=== PATIENT | male | born 1960 | race Caucasian/White ===

== ENCOUNTER 2017-01-04 11:15 | Emergency (ER) | payer SELFPAY ==
[2017-01-04] MEDS ORDERED: Ketorolac INJ* 60 MG/2 ML VIAL IM ONE (12:34)
[2017-01-04] MEDS ORDERED: Dexamethasone IV* 4 MG/ML 1 ML (4 MG) IM ONE (12:35)
[2017-01-04] MEDS ORDERED: Orphenadrine Citrate IV* 30 MG/ML 2 ML VIAL IM ONE (12:35)
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
--- NOTE | 2017-01-04 13:46 | RAD ---
INDICATION: Right hip pain COMPARISON: None TECHNIQUE: An AP view of the pelvis and AP views of the hip in neutral and abducted position were obtained FINDINGS: Bones: There are no acute bony findings. Joint spaces: The hips articulate normally. The joint spaces are preserved. SI joints/symphysis: The SI joints and symphysis are intact. Other: None IMPRESSION: NO ACUTE BONY FINDINGS.
--- NOTE | 2017-01-04 13:49 | RAD ---
Indication: Sciatica. 5 views of lumbar spine are reviewed. There is mild compression of the L3 vertebra of the superior endplate. The age of this is undetermined. This was not present on prior CT of April 02, 2016. There is approximately 25% compression. Degenerative disc disease at L2-L3 is noted. Osteopenia is noted. Pedicles appear intact. IMPRESSION: MILD COMPRESSION SUPERIOR ENDPLATE L3 OF APPROXIMATELY 25% AGE OF WHICH IS UNDETERMINED. THIS WAS NOT PRESENT ON PRIOR CT DATED 08-17.
[2017-01-04 14:19] VITALS: BP 126/74
== END 2017-01-04 14:18 | disposition home or self-care (01) ==
LOC: ED 11:15
DX: M54.16 Radiculopathy, lumbar region (principal); M25.50 Pain in unspecified joint; F17.210 Nicotine dependence, cigarettes, uncomplicated
CPT/HCPCS: 72110; 96374; 96375; 99282; J1100; J1885; J2360

== ENCOUNTER 2017-02-02 08:28 | Observation (INO) | payer MEDICAID, OTHER ==
[~2017-02-02 08:28] MED LIST: Bacitracin IV* 50,000 UNITS INJ ONE; Buffered Lidocaine 1% SYRIN* 3 ML/SYR SYRINGE INTRADERM ONE; Lidocain 1% EPI 1:100,000 * 30 ML MDV ONE; Thrombin 5,000 UNITS* 1 APPLIC KIT - topical use - TOPICAL ONE; ceFAZolin 2 GM PREMIX(*) 2 GM/50 ML BAG IVPB ONE
[2017-02-02] MEDS ORDERED: fentaNYL* 50 MCG/ML 2 ML VIAL (100 MCG VIAL) ONE ×2 (09:02→11:51)
[2017-02-02] MEDS ORDERED: Albuterol 2.5 MG/3 ML NEB.SOL* (0.083%) ONE (09:03)
[2017-02-02] MEDS ORDERED: Dexamethasone IV* 4 MG/ML 1 ML (4 MG) ONE (09:26)
[2017-02-02] MEDS ORDERED: Atracurium* 10 MG/ML 10 ML VIAL ONE (09:26)
[2017-02-02] MEDS ORDERED: Lidocaine 2% PF * 5 ML VIAL ONE (09:26)
[2017-02-02] MEDS ORDERED: fentaNYL* 50 MCG/ML 5 ML VIAL (250 MCG VIAL) ONE (09:26)
[2017-02-02] MEDS ORDERED: Ondansetron INJ* 2 MG/ML VIAL ONE (09:26)
[2017-02-02] MEDS ORDERED: Propofol* 10 MG/ML 20 ML BTL IV PUSH ONE (09:26)
[2017-02-02] MEDS ORDERED: Phenylephrine IV* 40 MCG/ML 10 ML SYRINGE ONE (09:57)
[2017-02-02] MEDS ORDERED: EPHEDrine (Pressors)* 50 MG/ML VIAL ONE (10:02)
[2017-02-02] MEDS ORDERED: HYDROmorphone* 1 MG/ML 1 ML SYR IV PRN (10:12)
[2017-02-02] MEDS ORDERED: Scopolamine 1.5 mg* PATCH TRANSDERM PRN (10:12)
[2017-02-02] MEDS ORDERED: DiMENhydriNATE IV* 50 MG/ML VIAL IV PUSH PRN (10:12)
[2017-02-02] MEDS ORDERED: Atropine 1MG/ML INJ* 1 ML VIAL ONE (10:47)
[2017-02-02] MEDS ORDERED: Acetaminophen TAB* 325 MG PO PRN (10:56)
[2017-02-02] MEDS ORDERED: Magnesium Hydroxide LIQ* 30 ML UDC PO PRN (10:56)
[2017-02-02] MEDS ORDERED: Ondansetron INJ* 2 MG/ML VIAL IV PRN (10:56)
[2017-02-02] MEDS ORDERED: busPIRone TAB* 5 MG PO PRN (10:59)
[2017-02-02] MEDS ORDERED: ALPRAZolam TAB* 0.5 MG PO PRN (10:59)
[2017-02-02] MEDS ORDERED: Fluticasone-Salmeterol 250-50* DISKUS INH SCH (11:00)
[2017-02-02] MEDS ORDERED: Morphine INJ* 4 MG/ML 1 ML SYRINGE IV PRN (11:01)
[2017-02-02] MEDS ORDERED: Albuterol 0.5% CONC NEB.SOL* 5 MG/ML 20 ml BOT INH PRN (11:02)
[2017-02-02] MEDS: fentaNYL* 50 MCG/ML 2 ML VIAL (100 MCG VIAL) IV PRN ×2 (11:52→12:01)
[2017-02-02] MEDS: HYDROcodone/ACETAMIN 5-325 MG* 1 TAB PO PRN ×3 (13:00→22:50)
[2017-02-02] MEDS ORDERED: Mometasone/Formoter 200/5 MDI INH SCH (13:03)
--- NOTE | 2017-02-02 14:15 | RAD ---
INDICATION: Lumbar discectomy L3-L4. COMPARISON: Comparison is made with a prior MRI of the lumbar spine from January 17, 2017. TECHNIQUE: A single crosstable lateral view of the lumbar spine was obtained in the operating room. FINDINGS: There are surgical instruments which project posteriorly at the L3-L4 level. IMPRESSION: INTRAOPERATIVE CONTROL FILMS.
[2017-02-02] MEDS ORDERED: Atorvastatin* 20 MG TAB PO SCH (17:00)
[2017-02-03] MEDS: HYDROcodone/ACETAMIN 5-325 MG* 1 TAB PO PRN (05:12)
[2017-02-03 07:57] VITALS: BP 146/98
--- NOTE | 2017-02-03 08:14 | PN ---
Progress Note - Progress Note SOAP: Subjective: []POD # 1 Feels better Still some leg pain Drain removed Objective: []Dressing changed Motor intact Assessment: [] Satis post op course Plan: []D/C today D/C instructions given
[2017-02-03] MEDS ORDERED: Lisinopril TAB* 10 MG PO SCH (09:00)
[2017-02-03] MEDS ORDERED: Influenza VAC *QUAD* 2016-17* 0.5 ML SYRINGE IM ONE (09:00)
[2017-02-03] MEDS ORDERED: Sertraline* 50 MG TAB PO SCH (09:00)
[2017-02-03] MEDS ORDERED: Propranolol LA CAP* 80 MG PO SCH (09:00)
[2017-02-05] MEDS ORDERED: Scopolomine PATCH Remove* 1 NOTE MISC PATCH OFF ONE (10:13)
--- NOTE | 2017-02-05 23:07 | OP ---
DATE OF OPERATION: 02/02/17 - ROOM #339 DATE OF : 62 SURGEON: Anurag Parrish MD ANESTHESIOLOGIST: Sudhir Francis MD ANESTHESIA: General. PRE-OP DIAGNOSIS: Herniated nucleus pulposus, L3-L4 on the right. POST-OP DIAGNOSIS: Herniated nucleus pulposus, L3-L4 on the right. OPERATIVE PROCEDURE: Lumbar diskectomy, L3-L4 on the right with microdissection. DESCRIPTION OF PROCEDURE: After satisfactory general anesthesia was obtained, the patient was placed on the operating table in a prone position with the chest supported on the Eder frame and the back slightly flexed. The lumbar region was then clipped, prepped, and draped in a sterile manner for lumbar laminectomy and a skin incision outlined from L3-L4. This incision was infiltrated with 1% Xylocaine with epinephrine after which it was turned down sharply to the level of the lumbar fascia. The fascia was divided along the spinous processes of L3 and L4 and the paraspinal musculature stripped away from these posterior elements using the periosteal elevator and monopolar cautery. An intrao-perative x-ray was obtained verifying proper interspace localization after which a partial hemilaminectomy was carried out by removing the inferior aspect of the L3 lamina and the medial aspect of the facet complex with a combination of the Midas Aurelio drill and Kerrison rongeurs. This was carried superiorly until the attachment of ligamentum flavum was taken down. A generalized foraminotomy was carried out over the L4 nerve root after which the operating microscope was brought into the field and the remainder of the procedure was done under microscopic visualization. Utilizing microdissection, the epidural venous structures were coagulated and divided. There was noted to be abundant epidural bleeding, which was controlled with the bipolar forceps and temporary Gelfoam. Projecting inferior to the disk space were several freely extruded disk fragments which were all removed. An opening was then enlarged into the disk space itself and the disk space cleared of any loose disk material using pituitary forceps and curettes. It was felt that a satisfactory decompression had been achieved. Due to troublesome oozing from the epidural venous plexus, a drain was placed in the epidural space and tunnelled out towards the right side. A piece of Gelfoam was then placed over the laminectomy defect. The fascia was then reapproximated with 0-Vicryl suture , the subcutaneous tissue was closed with 3-0 Vicryl suture, and the skin closed with skin clips. The estimated blood loss was less than 50 cc and the final sponge, padding, and needle counts were correct. The patient was taken to the recovery room, extubated and in stable condition. [id number]/CPS #: [id number] MTDD
== END 2017-02-03 09:15 | disposition home or self-care (01) ==
LOC: OR 08:28 → SSU 12:26
PROVIDERS: ADMIT Neurological Surgery; ATTEND Neurological Surgery
PROC: 01NB0ZZ Release Lumbar Nerve, Open Approach (ICD-10-PCS; 2017-02-02)
PROC: 0SB20ZZ Excision of Lumbar Vertebral Disc, Open Approach (ICD-10-PCS; principal; 2017-02-02 09:30)
DX: M51.16 Intervertebral disc disorders with radiculopathy, lumbar region (principal); F17.210 Nicotine dependence, cigarettes, uncomplicated
CPT/HCPCS: 72100; 88304; 96374; 99406; A9270-GY; G0378; J0461; J0690; J1100; J2405; J2704; J3010

== ENCOUNTER 2017-04-18 09:29 | Emergency (ER) | payer OTHER ==
[2017-04-18] MEDS ORDERED: Ketorolac INJ* 30 MG/ML 1 ML VIAL IV PUSH ONE (12:59)
[2017-04-18] MEDS ORDERED: Diazepam SYRINGE* 5 MG/ML SYRINGE IV ONE (12:59)
[2017-04-18] MEDS ORDERED: Morphine INJ* 4 MG/ML 1 ML SYRINGE IV ONE (12:59)
[2017-04-18] MEDS ORDERED: Ondansetron INJ* 2 MG/ML VIAL IV ONE (12:59)
--- NOTE | 2017-04-18 14:01 | RAD ---
INDICATION: Status post lumbar surgery pain radiating into right hip and lower extremity. COMPARISON: Comparison is made with a prior CT of the lumbar spine from April 02, 2016 and a prior MRI of the lumbar spine from January 18, 2017. TECHNIQUE: Contiguous axial sections were obtained beginning above the T12 vertebra and continuing through the L5-S1 disc space. Images were reconstructed in the sagittal and coronal planes. No endplate erosive changes are seen. No fluid collection or abscess is noted within the soft tissues. FINDINGS: There is a moderate compression fracture of the superior half of the L3 vertebral body with loss of height of approximately 50% which is unchanged from the prior MRI study. At the L1-L2 level there is a mild to moderate broad-based disc bulge and mild hypertrophic changes within the facet joints which gives rise to mild to moderate spinal canal narrowing. There is mild to moderate bilateral neural foraminal narrowing. At the L2-L3 level there is a moderate broad-based disc bulge and mild hypertrophic changes within the facet joints which gives rise to moderate spinal canal narrowing and moderate bilateral neural foraminal narrowing. At the L3-L4 level the patient is status post right hemilaminectomy. There is a moderate broad-based disc bulge and mild hypertrophic changes within the facet joints which gives rise to moderate spinal canal narrowing moderate bilateral neural foraminal narrowing. At the L4-L5 level there is a moderate broad-based disc bulge and moderate hypertrophic changes within the facet joints which gives rise to moderate spinal canal narrowing and moderate neural foraminal narrowing on the left side and moderate to severe neural foraminal narrowing on the right side which appears unchanged. At the L5-S1 level the intervertebral disc appears to be within normal limits. No spinal canal or neural foraminal narrowing is seen. There appears to be partial sacralization of the L5 vertebra as previously described. The results of this exam were discussed with the referring clinician. IMPRESSION: 1. CHRONIC COMPRESSION FRACTURE OF THE L3 VERTEBRAL BODY, UNCHANGED. 2. POSTSURGICAL CHANGES NOTED. THERE IS NO GROSS EVIDENCE FOR ABSCESS. IF THERE IS A HIGH CLINICAL SUSPICION FOR INFECTION CONSIDER MR IMAGING . 3. DIFFUSE DEGENERATIVE DISC DISEASE AND FACET OSTEOARTHRITIS WITH SPINAL CANAL AND NEURAL FORAMINAL NARROWING AT MULTIPLE LEVELS DESCRIBED..
[2017-04-18 14:02] LABS: Hematocrit 46 % (42-52); Hemoglobin 15.3 g/dl (14.0-18.0); Mean Corpuscular HGB Conc 33 g/dl (31-36); Mean Corpuscular Hemoglobin 31 pg (27-31); Mean Corpuscular Volume 95 fL (80-94); Mean Platelet Volume 8 um3 (7.4-10.4); Red Blood Count 4.87 10^6/ul (4.0-5.4); Red Cell Distribution Width 13 % (10.5-15); White Blood Count 11.1 10^3/ul (3.5-10.8)
--- NOTE | 2017-04-18 14:10 | RAD ---
Indication: Post lumbar surgery. Pain radiating into the RIGHT hip and lower extremity. Assess for occult fracture, abscess, dislocation, nerve impingement. Comparison: April 02, 2016 CT. February 02, 2017 intraoperative radiograph. January 18, 2017 MRI lumbar sacral spine. Technique: Noncontrast CT pelvis and proximal femurs. Multiplanar reformation. Report: Moderate diverticulosis of the visualized descending and sigmoid colon segments without findings of diverticulitis. Normal retrocecal appendix visualized. Negative for ascites or free air within the [id number]. Fat-containing umbilical hernia without inflammatory change. Unremarkable visualized inferior pole cyst of the kidneys as well as the nondilated visualized ureters and partially distended urinary bladder. Symmetric seminal vesicles. Negative for lymphadenopathy. Normal diameter visualized infrarenal segment of the abdominal aorta and iliac arteries with mild calcific plaque. Physiologic distention of the visualized inferior vena cava. Negative for soft tissue hematoma. Postsurgical change of L4-L5 RIGHT hemilaminectomy. Variant bilateral L5 sacralization. Mild to moderate predominant anterior column compression fracture at L3 is unchanged compared with the January 18, 2017 MRI. No acute or subacute fracture evident about the pelvis or proximal femurs. Mild bilateral hip joint osteophytic lipping and axial joint space narrowing with associated mild acetabular roof subchondral sclerosis and cystic change. Unremarkable sacroiliac joints and pubic symphysis. IMPRESSION: 1. Chronic mild to moderate predominant anterior column L3 compression fracture. 2. No acute fracture evident about the pelvis or proximal femurs. 3. 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 4. No soft tissue plane hematoma or inflammatory process evident within limits of noncontrast CT.
--- NOTE | 2017-04-18 14:22 | ED ---
Back Pain - HPI Summary HPI Summary: Pt here w/ chronic low back pain with Rt hip pain radiating into Rt LE - feels like his leg is cold and numb at times. Had lumbar diskectomy surgery in January [address] Parrish for herniated nucleus pulposus L3-4. He denies incontinence of bowels/bladder. Has had a few courses of steroids - feels one of them helped but the last one was ineffective. Difficulty sleeping. Pain is worse w/ moving hip. - History of Current Complaint Chief Complaint: EDBackInjuryPain Stated Complaint: RIGHT LEG AND HIP PAIN, Time Seen by Provider: 04/18/17 10:23 Hx Obtained From: Patient Pain Intensity: 8 - Allergies/Home Medications Allergies/Adverse Reactions: Allergies Allergy/AdvReac Type Severity Reaction Status Date / Time No Known Allergies Allergy Verified 02/02/17 08:35 PMH/Surg Hx/FS Hx/Imm Hx Previously Healthy: Yes Endocrine/Hematology History: Denies: Hx Diabetes Cardiovascular History: Reports: Hx Hypertension - MEDICATION Denies: Hx Pacemaker/ICD, Other Cardiovascular Problems/Disorders Respiratory History: Reports: Hx Asthma - ROUTINE INHALER, Hx Chronic Obstructive Pulmonary Disease (COPD), Hx Sleep Apnea Denies: Other Respiratory Problems/Disorders History: Denies: Hx Renal Disease Musculoskeletal History: Reports: Hx Arthritis - all over, Hx Back Problems Denies: Other Musculoskeletal History Sensory History: Reports: Hx Contacts or Glasses - glasses Denies: Hx Hearing Aid Opthamlomology History: Reports: Hx Contacts or Glasses - glasses Neurological History: Reports: Hx Seizures - 1 SEIZURE A CHILD, Other Neuro Impairments/Disorders - 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ER[place] 2015[place] RIGHT HAND SURGERY 2003;x2,. left ANKLE SURGERY WITH PINNING 2008;. SURGERY FOR A DEEP LACERATION LEFT THIGH; Hx Anesthesia Reactions: No Infectious Disease History: No Infectious Disease History: Denies: Traveled Outside the [place] in Last 30 Days - Family History Known Family History: Positive: Unknown - Social History Alcohol Use: Occasionally Alcohol Amount: 2 drinks q 2 weeks Substance Use Type: Reports: Marijuana Substance Use Comment - Amount & Last Used: DAILY to help him sleep, will refrain until after surgery Hx Tobacco Use: Yes Smoking Status (MU): Current Every Day Smoker Type: Cigarettes Amount Used/How Often: 1 PPD X 35 YEARS Length of Time of Smoking/Using Tobacco: 35 y Have You Smoked in the Last Year: Yes Review of Systems Constitutional: Negative Negative: Fever, Chills, Fatigue Cardiovascular: Negative Negative: Chest Pain Respiratory: Negative Negative: Shortness Of Breath Gastrointestinal: Negative Negative: Abdominal Pain, Vomiting, Diarrhea, Nausea Positive: no symptoms reported. Negative: incontinence Musculoskeletal: Other - see HPI Skin: Negative Positive: Weakness - see HPI, Paresthesia Psychological: Normal All Other Systems Reviewed And Are Negative: Yes Physical Exam Triage Information Reviewed: Yes Vital Signs On Initial Exam: Initial Vitals Temp Pulse Resp BP Pulse Ox 98.6 F 104 22 147/99 97 04/18/17 09:38 04/18/17 09:38 04/18/17 09:38 04/18/17 09:38 04/18/17 09:38 Vital Signs Reviewed: Yes Appearance: Positive: Well-Appearing, No Pain Distress - pt sleeping upon entrance to room - when he wakes, reports he's in a lot of pain Skin: Positive: Warm, Dry - no signs of infection over affected area on back where surgery took place in January 2017 Head/Face: Positive: Normal Head/Face Inspection ENT: Positive: Hearing grossly normal Neck: Positive: Supple, Nontender Respiratory/Lung Sounds: Positive: Breath Sounds Present Cardiovascular: Positive: Pulses are Symmetrical in both Upper and Lower Extremities. Negative: Leg Edema Left, Leg Edema Right Abdomen Description: Positive: Nontender, Soft Bowel Sounds: Positive: Present Musculoskeletal: Positive: Strength/ROM Intact, Pain @ - + Alistair's Rt side Neurological: Positive: Normal, Sensory/Motor Intact, Alert, Oriented to Person Place, Time, CN Intact II-III, Reflexes Intact Psychiatric: Positive: Other - energetic, hyperverbal, pleasant, cooperative w/ exam - [place] Coma Scale Coma Scale Total: 15 Diagnostics - Vital Signs Vital Signs Temp Pulse Resp BP Pulse Ox 04/18/17 13:43 22 04/18/17 13:42 22 04/18/17 09:51 98.5 F 91 16 154/116 97 04/18/17 09:38 98.6 F 104 22 147/99 97 - Laboratory Lab Results: Lab Results 04/18/17 Range/Units 13:40 WBC 11.1 H (3.5-10.8) 10^3/ul RBC 4.87 (4.0-5.4) 10^6/ul Hgb 15.3 (14.0-18.0) g/dl Hct 46 (42-52) % MCV 95 H (80-94) fL MCH 31 (27-31) pg MCHC 33 (31-36) g/dl RDW 13 (10.5-15) % Plt Count 403 (150-450) 10^3/ul MPV 8 (7.4-10.4) um3 Neut % (Auto) 66.3 (38-83) % Lymph % (Auto) 24.7 L (25-47) % [place] % (Auto) 7.4 (1-9) % Eos % (Auto) 1.1 (0-6) % Baso % (Auto) 0.5 (0-2) % Absolute Neuts (auto) 7.4 (1.5-7.7) 10^3/ul Absolute Lymphs (auto) 2.7 (1.0-4.8) 10^3/ul Absolute Monos (auto) 0.8 (0-0.8) 10^3/ul Absolute Eos (auto) 0.1 (0-0.6) 10^3/ul Absolute Basos (auto) 0.1 (0-0.2) 10^3/ul Absolute Nucleated RBC 0.02 10^3/ul Nucleated RBC % 0.1 Result Diagrams: 04/18/17 13:40 04/18/17 13:40 Lab Statement: Any lab studies that have been ordered have been reviewed, and results considered in the medical decision making process. Back Pain Course/Dx - Course Course Of Treatment: Pt presents w/ acute on chronic lumbar and Rt hip pain. He reports he had brief relief of pain after lumbar discectomy in January with a few courses of steroids but no longer has relief. Spoke w/ Dr. Parrish who feels pt is seeking for pain medications - advised further investigating his hip pain. This was assesed as well as pt's lumbar spine for update since surgery - no changes in position are noted, no new pathologies and no abscess is identified. Lumbar spine continues to have L3 compression fx and severe arthritis/DDD. Rt Hip is found to have grade 2 OA. Tx today is geared at reducing inflammation by also addressing nerve pain pt is reporting by trialing gabapentin and dexamethasone. 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 Encouraged him to seek consult as well with orthopedics in the events hip treatment may reduce pain/improve quality of life. He is concerned about his lack of function and wants to get back to activities. Discussed danger s/sx of when to return to ED. Pt agrees w/ plan. - Diagnoses Provider Diagnoses: Osteoarthritis of right hip, Arthritis, lumbar spine, Degenerative disc disease , lumbar, Compression fracture of L3 lumbar vertebra Discharge - Discharge Plan Condition: Stable Disposition: HOME Prescriptions: Gabapentin CAP(*) [Neurontin 300 CAP(*)] 300 mg PO TID #21 cap Patient Education Materials: Osteoarthritis (ED) Referrals: Ruben Valdez MD [Medical Doctor] - Dave Tinajero MD [Primary Care Provider] - Additional Instructions: You appear to have arthritis in your Right hip as well as your spine. You have been taking percocet and flexeril as well as naproxen without relief so a trial of dexamethasone (a steroid) and gabapentin (nerve medication) will be started today for a 1 week trial. It is advised that you limit activity, use a walker for ambulation/balance to prevent worsening of symptoms and follow-up with orthopedic provider this week. Call today to schedule an appointment. Contact information provided. Follow-up with Dr. Mccullough as scheduled. Make note of symptoms while taking gabapentin (nerve medication) in an effort to help your providers better help you with your pain control. Keep follow-up appointments with Dr. Parrish as directed -if there are none, then please follow-up with PCP and pain specialist. *If you develop fever, chills, nausea, vomiting, weakness, incontinence of bowels/bladder, return to ED
[2017-04-18] MEDS ORDERED: Dexamethasone IV* 4 MG/ML 1 ML (4 MG) IV SLOW PU ONE (14:27)
[2017-04-18] MEDS ORDERED: Gabapentin CAP(*) 300 MG PO ONE (14:36)
[2017-04-18 15:28] VITALS: BP 174/100
== END 2017-04-18 15:27 | disposition home or self-care (01) ==
LOC: ED 09:29
DX: M48.56XA Collapsed vertebra, not elsewhere classified, lumbar region, initial encounter for fracture (principal); M54.5 Low back pain; M25.551 Pain in right hip; F17.210 Nicotine dependence, cigarettes, uncomplicated; R53.1 Weakness; M16.11 Unilateral primary osteoarthritis, right hip; M51.36 Other intervertebral disc degeneration, lumbar region
CPT/HCPCS: 36415; 72131; 72192; 83605; 85025; 96374; 96375; 99282; A9270-GY; J1100; J1885; J2270; J2405; J3360

== ENCOUNTER → 2017-08-25 21:27 | Emergency (ER) | payer SELFPAY ==
[~2017-08-25 21:27] MED LIST changes: -Bacitracin IV* 50,000 UNITS INJ ONE; -Buffered Lidocaine 1% SYRIN* 3 ML/SYR SYRINGE INTRADERM ONE; -Lidocain 1% EPI 1:100,000 * 30 ML MDV ONE; -Thrombin 5,000 UNITS* 1 APPLIC KIT - topical use - TOPICAL ONE; -ceFAZolin 2 GM PREMIX(*) 2 GM/50 ML BAG IVPB ONE; +oxyCODONE/Acetamin 5/325 MG* TAB PO ONE
[2017-08-25 21:57] VITALS: BP 124/76
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
== END | disposition home or self-care (01) ==
LOC: ED 21:27
DX: M54.5 Low back pain (principal); F17.210 Nicotine dependence, cigarettes, uncomplicated; V49.9XXA Car occupant (driver) (passenger) injured in unspecified traffic accident, initial encounter; Y93.9 Activity, unspecified; Y92.9 Unspecified place or not applicable
CPT/HCPCS: 36415; 72125; 72128; 72131; 86703; 99282; A9270-GY

== ENCOUNTER 2017-08-30 15:26 | Emergency (ER) | payer OTHER ==
[2017-08-30 17:48] VITALS: BP 136/109
[2017-08-30] MEDS ORDERED: Cyclobenzaprine TAB* 10 MG PO ONE (18:49)
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
== END 2017-08-30 19:43 | disposition home or self-care (01) ==
LOC: ED 15:26
DX: R51 Headache (principal); F17.210 Nicotine dependence, cigarettes, uncomplicated; Z86.79 Personal history of other diseases of the circulatory system
CPT/HCPCS: 70450; 99282; A9270-GY

== ENCOUNTER 2017-09-14 12:31 | Emergency (ER) | payer OTHER ==
[2017-09-14] MEDS ORDERED: Diazepam SYRINGE* 5 MG/ML 2 ML SYRINGE (10 MG total) IV ONE (13:15)
[2017-09-14 14:21] LABS: Hematocrit 42 % (42-52); Hemoglobin 14.3 g/dl (14.0-18.0); Mean Corpuscular HGB Conc 34 g/dl (31-36); Mean Corpuscular Hemoglobin 31 pg (27-31); Mean Corpuscular Volume 91 fL (80-94); Mean Platelet Volume 7 um3 (7.4-10.4); Red Blood Count 4.59 10^6/ul (4.0-5.4); Red Cell Distribution Width 14 % (10.5-15); White Blood Count 7.3 10^3/ul (3.5-10.8)
[2017-09-14] MEDS ORDERED: Diazepam TAB(*) 5 MG PO ONE (14:21)
[2017-09-14 14:27] LABS: Albumin 4.2 g/dL (3.2-5.2); BUN/Creatinine Ratio 23.3 (8-20); Calcium 9.8 mg/dL (8.6-10.3); EGFR African American 80.5 (>60); EGFR Non-African American 62.6 (>60); Potassium 4.9 mmol/L (3.5-5.0); Total Bilirubin 0.4 mg/dL (0.2-1.0); Total Protein 7.2 g/dL (6.4-8.9)
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
[2017-09-14] MEDS ORDERED: Dexamethasone IV* 4 MG/ML 1 ML (4 MG) IM ONE (18:24)
[2017-09-14] MEDS ORDERED: Lidocaine PATCH 5%* 1 PATCH TRANSDERM ONE (18:24)
[2017-09-14 19:02] VITALS: BP 111/81
== END 2017-09-14 19:02 | disposition home or self-care (01) ==
LOC: ED 12:31
DX: M54.9 Dorsalgia, unspecified (principal); Z86.79 Personal history of other diseases of the circulatory system; R30.0 Dysuria; F17.210 Nicotine dependence, cigarettes, uncomplicated
CPT/HCPCS: 36415; 72148; 80053; 85025; 96372; 96374; 99282; A9270-GY; J1100

== ENCOUNTER 2018-01-08 16:26 | Emergency (ER) | payer OTHER ==
[2018-01-08 17:31] LABS: ABS Basophils 0 10^3/ul (0-0.2); ABS Eosinophils 0.1 10^3/ul (0-0.6); ABS Lymphocytes 3.3 10^3/ul (1.0-4.8); ABS Monocytes 1.2 10^3/ul (0-0.8); ABS Nucleated RBC 0 10^3/ul; Eosinophil % 0.5 % (0-6); Hematocrit 41 % (42-52); Hemoglobin 13.9 g/dl (14.0-18.0); Lymphocyte % 34.5 % (25-47); Mean Corpuscular HGB Conc 34 g/dl (31-36); Mean Corpuscular Hemoglobin 31 pg (27-31); Mean Corpuscular Volume 92 fL (80-94); Mean Platelet Volume 6.6 um3 (7.4-10.4); Nucleated Red Blood Cells % 0.1; Platelet Count 460 10^3/ul (150-450); Red Blood Count 4.42 10^6/ul (4.0-5.4); Red Cell Distribution Width 13 % (10.5-15); White Blood Count 9.6 10^3/ul (3.5-10.8)
[2018-01-08] MEDS ORDERED: oxyCODONE/Acetamin 5/325 MG* TAB PO ONE (17:38)
[2018-01-08 17:49] LABS: EGFR Non-African American 101.5 (>60)
[2018-01-08] MEDS ORDERED: Iohexol 300* (CONTRAST) 10 ML SDV IV ONE (18:51)
[2018-01-08] MEDS ORDERED: HYDROmorphone INJ* 2 MG/ML CARPUJECT SYRINGE IV ONE (19:30)
[2018-01-08] MEDS ORDERED: HYDROmorphone INJ* 1 MG/ML CARPUJECT SYRINGE IV ONE (19:30)
--- NOTE | 2018-01-08 19:55 | RAD ---
INDICATION: 4 months shortness of breath. Vocal cord paralysis. Concern for lung carcinoma. COMPARISON: November 23, [address] TECHNIQUE: Multidetector CT images were obtained from the lung apices to the upper abdomen with 80 mL Omnipaque 300 IV contrast. Multiplanar reformation. REPORT: Minimal dependent subsegmental atelectasis. The lungs and pleural spaces are otherwise clear. Artifact at the visualized lower neck from the cortical plate at the LEFT clavicle. Negative for thoracic lymphadenopathy or mediastinal mass. Negative for cardiomegaly or pericardial effusion. Coronary artery calcifications. Mild atherosclerotic plaque of normal diameter thoracic aorta. Negative for aortic dissection. Unremarkable limited images through the upper abdomen. Small atypical lobular contour of the liver at the posterior aspect of the RIGHT posterior hepatic segment at the level of Morison's pouch is unchanged compared with a CT from April 02, 2016 without concern. Negative for suspicious thoracic osseous lesions. Multiple healed LEFT rib fractures noted. IMPRESSION: 1. Negative for thoracic lymphadenopathy, mediastinal mass, or other abnormality along the expected course of the recurrent laryngeal nerve. 2. No CT evidence for lung carcinoma.
[2018-01-08 21:37] VITALS: BP 127/104
--- NOTE | 2018-01-08 21:51 | ED ---
Kinjal Dowling Rebecca, scribed for Miguel Wilkins MD on 01/08/18 at 1648 . Shortness of Breath - HPI Summary HPI Summary: Pt is a 57 y/o M who presents to ED c/o SOB. Symptoms characterized as dyspnea at rest and have been present for about 6 months. He additionally c/o voice change, difficulty to talk, and "windpipe" pain that is described as going "all the way down into my stomach" that is currently severe, ranked 10/10. Pain has also been present for "a while." Pain alleviated by milkshakes. Pt saw Dr. Atkins (ENT) today and he was sent to [facility] ED for admission and he was found to have left sided vocal cord paralysis. SHx smoker - 1/2 PPD; 1 PPD for most of his life. Pt notes that there is an abnormal smell coming from his heating ducts when the heat is turned on. - History of Current Complaint Chief Complaint: EDShortnessOfBreath Time Seen by Provider: 01/08/18 16:42 Hx Obtained From: Patient Onset/Duration: Lasting Weeks - 6 months, Still Present Current Severity: Severe - 10/10 pain Dyspnea At: Rest Aggrevating Factors: Nothing Alleviating Factors: Other - Pain - milkshakes - Allergy/Home Medications Allergies/Adverse Reactions: Allergies Allergy/AdvReac Type Severity Reaction Status Date / Time No Known Allergies Allergy Verified 01/08/18 16:33 Home Medications: Home Medications ALPRAZolam TAB* [Xanax TAB*] 0.5 - 1 mg PO TID PRN 01/08/18 [History Confirmed 01/08/18] Albuterol HFA INHALER* [Ventolin HFA Inhaler*] 2 puff INH Q4H PRN 01/08/18 [ History Confirmed 01/08/18] Cyclobenzaprine TAB* [Flexeril 10 MG TAB*] 10 mg PO TID PRN 01/08/18 [History Confirmed 01/08/18] Gabapentin CAP(*) [Neurontin 300 CAP(*)] 600 mg PO QID 01/08/18 [History Confirmed 01/08/18] Ibuprofen TAB* [Motrin TAB* 800 MG] 800 mg PO TID PRN MDD 3 tablets 01/08/18 [ History Confirmed 01/08/18] Mometasone/Formoter 200/5 MDI* [Dulera 200/5 MDI*] 2 puff INH BID 01/08/18 [ History Confirmed 01/08/18] Omeprazole CAP* [Prilosec CAP* 20 MG] 20 mg PO QAM 01/08/18 [History Confirmed 01/08/18] Propranolol TAB* [Inderal TAB*] 80 mg PO QAM 01/08/18 [History Confirmed ] oxyCODONE TAB* [Roxycodone TAB 5 mg*] 10 mg PO Q4H PRN 01/08/18 [History Confirmed 01/08/18] PMH/Surg Hx/FS Hx/Imm Hx Endocrine/Hematology History: Denies: Hx Diabetes Cardiovascular History: Reports: Hx Hypertension - MEDICATION Denies: Hx Pacemaker/ICD, Other Cardiovascular Problems/Disorders Respiratory History: Reports: Hx Asthma - ROUTINE INHALER, Hx Chronic Obstructive Pulmonary Disease (COPD), Hx Sleep Apnea Denies: Other Respiratory Problems/Disorders History: Denies: Hx Renal Disease Musculoskeletal History: Reports: Hx Arthritis - all over, Hx Back Problems Denies: Other Musculoskeletal History Sensory History: Reports: Hx Contacts or Glasses - glasses Denies: Hx Hearing Aid Opthamlomology History: Reports: Hx Contacts or Glasses - glasses Neurological History: Reports: Hx Seizures - 1 SEIZURE A CHILD, Other Neuro Impairments/Disorders - 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ERUS [place] PLATING 2015;[place]. RIGHT HAND SURGERY 2003;x2,. left ANKLE SURGERY WITH PINNING 2008;. SURGERY FOR A DEEP LACERATION LEFT THIGH; Hx Anesthesia Reactions: No - Immunization History Date of Influenza Vaccine: 08/2017 Infectious Disease History: No Infectious Disease History: Denies: Traveled Outside the [place] in Last 30 Days - Family History Known Family History: Positive: Cardiac Disease Negative: Diabetes - Social History Alcohol Use: None Alcohol Amount: hx Hx Substance Use: Yes Substance Use Type: Reports: Marijuana Substance Use Comment - Amount & Last Used: DAILY to help him sleep, will refrain until after surgery Hx Tobacco Use: Yes Smoking Status (MU): Heavy Every Day Tobacco Smoker Type: Cigarettes Amount Used/How Often: 1 PPD X 35 YEARS Length of Time of Smoking/Using Tobacco: 35 y Have You Smoked in the Last Year: Yes Review of Systems Positive: Other - "windpipe pain"; voice change; difficulty talking Positive: Shortness Of Breath All Other Systems Reviewed And Are Negative: Yes Physical Exam - Summary Physical Exam Summary: Appearance: The patient is well-nourished in no acute distress and in no acute pain. Patient's voice is strange. Skin: The skin is warm and dry and skin color reflects adequate perfusion. HEENT: The head is normocephalic and atraumatic. The pupils are equal and reactive. The conjunctivae are clear and without drainage. Nares are patent and without drainage. Mouth reveals moist mucous membranes and the throat is without erythema and exudate. The external ears are intact. The ear canals are patent and without drainage. The tympanic membranes are intact. Neck: the neck is supple with full range of motion and non-tender. There are no carotid bruits. There is no neck vein distension. Respiratory: Chest is non-tender. Lungs are clear to auscultation and breath sounds are symmetrical and equal. Cardiovascular: Heart is regular rate and rhythm. There is no murmur or rub auscultated. There is no peripheral edema and pulses are symmetrical and equal. Abdomen: The abdomen is soft and non-tender. There are normal bowel sounds heard in all four quadrants and there is no organomegaly palpated. Musculoskeletal: There is no back tenderness noted. Extremities are non-tender with full range of motion. There is good capillary refill. There is no peripheral edema or calf tenderness elicited. Neurological: Patient is alert and oriented to person, place and time. The patient has symmetrical motor strength in all four extremities. Cranial nerves are grossly intact. Deep tendon reflexes are symmetrical and equal in all four extremities. Psychiatric: The patient has an appropriate affect and does not exhibit any anxiety or depression. Triage Information Reviewed: Yes Vital Signs On Initial Exam: Initial Vitals Temp Pulse Resp BP Pulse Ox 97.6 F 74 28 165/109 96 01/08/18 16:33 01/08/18 16:33 01/08/18 16:33 01/08/18 16:33 01/08/18 16:33 Vital Signs Reviewed: Yes Diagnostics - Vital Signs Vital Signs Temp Pulse Resp BP Pulse Ox 01/08/18 16:33 97.6 F 74 28 165/109 96 - Laboratory Lab Results: Lab Results 01/08/18 01/08/18 01/08/18 Range/Units 17:20 17:20 17:20 WBC 9.6 (3.5-10.8) 10^3/ul RBC 4.42 (4.0-5.4) 10^6/ul Hgb 13.9 L (14.0-18.0) g/dl Hct 41 L (42-52) % MCV 92 (80-94) fL MCH 31 (27-31) pg MCHC 34 (31-36) g/dl RDW 13 (10.5-15) % Plt Count 460 H (150-450) 10^3/ul MPV 6.6 L (7.4-10.4) um3 Neut % (Auto) 51.9 (38-83) % Lymph % (Auto) 34.5 (25-47) % Owen % (Auto) 12.6 H (0-7) % Eos % (Auto) 0.5 (0-6) % Baso % (Auto) 0.5 (0-2) % Absolute Neuts (auto) 5.0 (1.5-7.7) 10^3/ul Absolute Lymphs (auto) 3.3 (1.0-4.8) 10^3/ul Absolute Monos (auto) 1.2 H (0-0.8) 10^3/ul Absolute Eos (auto) 0.1 (0-0.6) 10^3/ul Absolute Basos (auto) 0 (0-0.2) 10^3/ul Absolute Nucleated RBC 0 10^3/ul Nucleated RBC % 0.1 Sodium 139 (139-145) mmol/L Potassium 3.6 (3.5-5.0) mmol/L Chloride 105 (101-111) mmol/L Carbon Dioxide 25 (22-32) mmol/L Anion Gap 9 (2-11) mmol/L BUN 30 H (6-24) mg/dL Creatinine 0.79 (0.67-1.17) mg/dL Est GFR ( Amer) 130.5 (>60) Est GFR (Non-Af Amer) 101.5 (>60) BUN/Creatinine Ratio 38.0 H (8-20) Glucose 98 (70-100) mg/dL Lactic Acid 1.1 (0.5-2.0) mmol/L Calcium 8.9 (8.6-10.3) mg/dL Total Bilirubin 0.30 (0.2-1.0) mg/dL AST 15 (13-39) U/L ALT 22 (7-52) U/L Alkaline Phosphatase 52 (34-104) U/L Troponin I 0.01 (<0.04) ng/mL C-Reactive Protein 1.74 (< 5.00) mg/L Total Protein 6.8 (6.4-8.9) g/dL Albumin 3.7 (3.2-5.2) g/dL Globulin 3.1 (2-4) g/dL Albumin/Globulin Ratio 1.2 (1-3) Result Diagrams: 01/08/18 17:20 01/08/18 17:20 Lab Statement: Any lab studies that have been ordered have been reviewed, and results considered in the medical decision making process. - CT Chest CT CT Interpretation: No Acute Changes - 1. Negative for thoracic lymphadenopathy, mediastinal mass, or other abnormality along the expected course of the recurrent laryngeal nerve. 2. No CT evidence for lung carcinoma. ED physician reviewed this radiology report. CT Interpretation Completed By: Radiologist Re-Evaluation - Re-Evaluation First Eval Re-Evaluation Time: 20:50 Comment: Discussed results and D/C plan with the pt. Course/Dx - Course Course Of Treatment: Mr. Tovar was stable in the ED. He had been found to have a left vocal cord partial paralysis by Dr. Atkins and sent to the ED for further evaluation. A CT of his chest failed to reveal the pathology and I recommended that he F/U with Dr. Tinajerofor further outpatient W/U. - Diagnoses Provider Diagnoses: Vocal cord paralysis Discharge - Sign-Out/Discharge Documenting (check all that apply): Discharge - Discharge - Discharge Plan Condition: Stable Disposition: HOME Prescriptions: oxyCODONE/Acetamin 5/325 MG* [Percocet 5/325 TAB*] 1 tab PO Q6H PRN #20 tab MDD 4 PRN Reason: Pain Referrals: Dave Tinajero MD [Primary Care Provider] - (Follow up with Dr. Tinajero within the week. ) Additional Instructions: RETURN TO EMERGENCY DEPARTMENT FOR ANY RETURNING OR WORSENING SYMPTOMS. - Billing Disposition and Condition Condition: STABLE Disposition: HOME The documentation as recorded by the Kinjal peres Rebecca accurately reflects the service I personally performed and the decisions made by me, Miguel Wilkins MD.
== END 2018-01-08 21:41 | disposition home or self-care (01) ==
LOC: ED 16:26
DX: J38.01 Paralysis of vocal cords and larynx, unilateral (principal); R06.02 Shortness of breath; Z86.79 Personal history of other diseases of the circulatory system; F17.210 Nicotine dependence, cigarettes, uncomplicated
CPT/HCPCS: 36415; 71260; 80053; 83605; 84484; 85025; 86140; 96374; 96375; 99284; A9270-GY; J1170; Q9967

== ENCOUNTER 2018-03-16 09:47 | Day surgery (SDC) | payer OTHER ==
[~2018-03-16 09:47] MED LIST changes: +Buffered Lidocaine 0.9% SYRIN* 5 ML/SYR SYRINGE INTRADERM ONE; -oxyCODONE/Acetamin 5/325 MG* TAB PO ONE
[2018-03-16] MEDS ORDERED: Oxymetazoline 0.05% NASAL SPR* 15 ML BTL ONE (12:28)
[2018-03-16] MEDS ORDERED: Lidocaine 4% TOPICAL* 50 ML TOP.SOLN ONE (12:28)
[2018-03-16] MEDS ORDERED: Dexamethasone IV* 4 MG/ML 1 ML (4 MG) ONE (12:39)
[2018-03-16] MEDS ORDERED: fentaNYL* 50 MCG/ML 2 ML VIAL (100 MCG VIAL) ONE (12:39)
[2018-03-16] MEDS ORDERED: Lidocaine 2% PF * 5 ML VIAL ONE (12:39)
[2018-03-16] MEDS ORDERED: Propofol* 10 MG/ML 20 ML BTL IV PUSH ONE (12:39)
[2018-03-16] MEDS ORDERED: Succinylcholine* 20 MG/ML 10 ML VIAL ONE (12:39)
[2018-03-16] MEDS ORDERED: Ondansetron INJ* 2 MG/ML VIAL IV PRN (13:05)
[2018-03-16] MEDS ORDERED: Naloxone* 0.4 MG/ML 1 ML VIAL IV PRN (13:05)
[2018-03-16] MEDS ORDERED: oxyCODONE TAB* 5 MG TAB PO PRN (13:05)
[2018-03-16] MEDS ORDERED: fentaNYL* 50 MCG/ML 2 ML VIAL (100 MCG VIAL) IV PRN (13:05)
[2018-03-16] MEDS ORDERED: Acetaminophen TAB* 325 MG PO PRN (13:05)
[2018-03-16] MEDS ORDERED: DiMENhydriNATE IV* 50 MG/ML VIAL IV PUSH PRN (13:05)
[2018-03-16 14:09] VITALS: BP 135/90
--- NOTE | 2018-03-17 07:41 | OP ---
DATE OF OPERATION: 03/16/18 - SDS DATE OF : 62 SURGEON: Trey Atkins MD. PRE-OP DIAGNOSIS: Left vocal cord paralysis, possible mass seen on CT scan. POST-OP DIAGNOSIS: Left vocal cord paralysis, no mass was found. OPERATIVE PROCEDURE: Microlaryngoscopy under general endotracheal anesthesia. COMPLICATIONS: None. DISPOSITION: Good. SPECIMEN: None. BLOOD LOSS: None. DESCRIPTION OF PROCEDURE: The patient was taken to the operating room, placed in the supine position on the operating room table. General anesthesia was induced and he was orotracheally intubated, turned and draped for the surgery. A mouth guard was placed in his upper teeth. Using several laryngoscopes of varying sizes, I did a panendoscopy of his oropharynx and hypopharynx, larynx, and postcricoid region, systematically looking in all of these regions, the posterior pharynx, piriform sinus, and larynx by bringing in the microscope palpating the larynx. Vocal cords were clear, some diffuse mild erythema consistent with smoking. There were no hypopharyngeal, postcricoid, oropharyngeal mass was found. No mass is palpated with bimanual palpation as deep as I could get my finger. The laryngoscopes were removed. Upper tooth guard was removed. Patient tolerated the procedure well. No complications. Transferred to the recovery room in stable condition. [id number]/CPS #: [id number] MTDD
== END 2018-03-16 14:14 | disposition home or self-care (01) ==
LOC: OR 09:47
PROVIDERS: ATTEND Otolaryngology
DX: J38.01 Paralysis of vocal cords and larynx, unilateral (principal); R93.8 Abnormal findings on diagnostic imaging of other specified body structures; I10 Essential (primary) hypertension; Z72.0 Tobacco use; J44.9 Chronic obstructive pulmonary disease, unspecified; G47.33 Obstructive sleep apnea (adult) (pediatric); J45.909 Unspecified asthma, uncomplicated; K21.9 Gastro-esophageal reflux disease without esophagitis; M19.90 Unspecified osteoarthritis, unspecified site; F41.9 Anxiety disorder, unspecified
CPT/HCPCS: A9270-GY; J0330; J1100; J2704; J3010

== ENCOUNTER 2019-09-28 16:47 | Inpatient (IN) | payer MEDICARE, OTHER ==
--- OUTSIDE RECORDS SUMMARY | 2019-09-28 16:59 | XMS REPORT ---
:1960 Author Organization [facility] Care Team Providers Name Role Phone Agustin Pablo Primary Care Physician Unavailable Allergies, Adverse Reactions, Alerts Allergy Code CodeSystem Reaction Severity Criticality Status Start Substance Date Moderate Medications Medication Medication Medication Start Stop Route Dose Status Fill Code CodeSystem Date Date Instructions RxNorm Problems Problem Name Code CodeSystem Alternate Alternate Start End Status Narrative Code CodeSystem Date Date Adjustment 16582333 SNOMED-CT Active disorders, 3- with mixed disturbance of emotions & conduct Adjustment 40610613 SNOMED-CT Active disorders, 12-21 with mixed disturbance of emotions & conduct Adjustment 13372457 SNOMED-CT Active disorders, 12-21 with mixed disturbance of emotions & conduct Tobacco use [id number] SNOMED-CT 0 Active 3- Relevant diagnostic tests/laboratory data Narrative No Information Procedures Procedure Code CodeSystem Target Date of Status Service Device Device Device Name Site Procedure Delivery Code Name UID Location Psychother [id number] SNOMED-CT () 2019-02-22 completed Mental apy, 45 4 Health- minutes [place] with [facility] patient [address] [place] [address], [id number] Psychother [id number] SNOMED-CT () 2019-03-01 completed Mental apy, 45 4 Health- minutes [place] with [facility] patient [address] [place] [address], [id number] Psychother [id number] SNOMED-CT () 2019-03-14 completed Mental apy, 45 4 Health- minutes [place] with [facility] patient [address] [place] [address], [id number] [id number] Psychother [id number] SNOMED-CT () 2019-03-28 completed Mental apy, 45 4 Health- minutes [place] with [facility] patient [address] [place] [address], [id number] [id number] Psychother [id number] SNOMED-CT () 2019-04-11 completed Mental apy, 45 4 Health- minutes [place] with [facility] patient [address] [place] [address], [id number] [id number] Psychother 0345518 SNOMED-CT () 2019-05-16 completed Mental apy, 45 4 Health- minutes [place] with [facility] patient [address] [place] [address], [id number] [id number] Psychother 2706177 SNOMED-CT () 2019-06-13 completed Mental apy, 45 4 Health- minutes [place] with [facility] patient [address] [place] [address], [id number] [id number] Psychother 3932246 SNOMED-CT () 2019-06-18 completed Mental apy, 45 4 Health- minutes [place]indy with [facility] patient [address] [place] [address], [id number] [id number] Psychother 3896021 SNOMED-CT () 2019-06-27 completed Mental apy, 45 4 Health- minutes [place]indy with [facility] patient [address] [place] [address], [id number] SNOMED-CT () 2019-07-11 completed Mental Health- [address], [id number] SNOMED-CT () 2019-08-05 completed Mental Health- [address], [id number] SNOMED-CT () 2019-01-30 completed Mental Health- [address], [id number] SNOMED-CT () 2019-01-23 completed Mental Health- [address], [id number] [id number] SNOMED-CT () 2018-12-31 completed Mental Health- [address], [id number] Encounters/Encounter Diagnoses Encounter Name Encounter Diagnosis Diagnosis Diagnosis Date of Service Code Code Name CodeSystem Diagnosis Delivery Location [facility] - [id number] Adjustment SNOMED-CT 2019-08-05 Behavioral Individual 30 disorders, Health min with [address], [facility] [place], [phone] Vital Signs No Information Social History Element Description Description Start End Code CodeSystem AdditionalInfo Date Date SexAssignedAtBirth Male 1960-0 M AdministrativeGender 04-25 Hospital Discharge Instructions Reason For Referral Medical Equipment FDA Assessments
--- OUTSIDE RECORDS SUMMARY | 2019-09-28 16:59 | XMS REPORT | Continuity of Care Document ---
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 Problems Active Problems Provider Date Degeneration of intervertebral disc Carley Tim PA Onset: 01/18/2017 Prolapsed lumbar intervertebral disc Calrey Tim PA Onset: 01/18/2017 Osteoarthritis Carley Tim PA Onset: 01/18/2017 Anxiety state Carley Tim PA Onset: 01/18/2017 Mild intermittent asthma Carley Tim PA Onset: 01/18/2017 Tobacco user Carley Tim PA Onset: 01/18/2017 Essential hypertension Carley Tim PA Onset: 01/18/2017 Hyperlipidemia Carley Tim PA Onset: 01/18/2017 Essential tremor Carley Tim PA Onset: 01/18/2017 Degenerative joint disease involving multiple Carley Tim PA Onset: 2016 joints Vocal cord paralysis Carley Tim PA Onset: 01/22/2018 Chronic obstructive lung disease Carley Tim PA Onset: 01/25/2018 Unilateral total vocal cord paralysis Carley Tim PA Onset: 01/25/2018 Coronary atherosclerosis Carley Tim PA Onset: 02/28/2018 Lumbosacral stenosis Carley Tim PA Onset: 05/02/2018 Neck pain Carley Tim PA Onset: 11/07/2018 Prediabetes Carley Tim PA Onset: 01/29/2019 Social History Type Date Description Comments Sex Unknown Tobacco Use Reviewed: Patient is a current 1/2 ppd as of 01/29/19 01/29/19 cigarette smoker, smokes (prior 1 ppd), every day started smoking age 14-15 Smoking Status Reviewed: Patient is a current 1/2 ppd as of 01/29/19 08/06/19 cigarette smoker, smokes (prior 1 ppd), every day started smoking age 14-15 ETOH Use Rarely consumes alcohol Recreational Drug Use 01/25/2018 Denies Drug Use Tobacco Use Reviewed: Heavy tobacco smoker 1 ppd 11/07/18 (more than 10 cigarettes/day) Recreational Drug Use 11/07/2018 Marijuana occasional use "for pain sleep" Exercise Type/Frequency Exercises regularly Exercise Type/Frequency 01/29/2019 Exercises sporadically Sun Exposure Does not use sunscreen Seat Belt/Car Seat Seat Belt Use - Yes Guns in Home No Smoke Alarms Yes smoke alarm Allergies, Adverse Reactions, Alerts Description No Known Drug Allergies Medications Active Medications SIG Qnty Indications Ordering Date Provider Ondansetron HCL 1 tab by mouth 90tabs A09 Silcoff, 08/06/2019 4mg every 8 hours as Mango Acosta Tablets needed for nausea Esomeprazole 1 cap by mouth 30caps A09 Silcoff, 08/06/2019 Magnesium every day for acid Mango Acosta 20mg reflux Capsules Lisinopril Take 1 Tablet By 90Tablet Carley Tim, 05/23/2019 10mg Mouth Every Day PA Tablets Amoxicillin 1 three times a 21tabs K04.7 Silcoff, 04/26/2019 500mg day a day x 7 days Mango Acosta Tablets for dental infection Lidocaine HCL 15 milliliters 100ml K12.30 Silcoff, 04/26/2019 4% swished in the Mango Acosta Solution mouth and spit out no more frequently than every 3 hours Breo Ellipta Take 1 puff By 60units Silcoff, 11/09/2018 Mouth Every Day Mango Acosta 200-25mcg/Inh Aerosol Cetirizine HCL Take 1 Tablet By 30tabs J30.9 Silcoff, 11/07/2018 10mg Mouth Every Day as Mango Acosta Tablets Needed For Congestion Metoprolol Tartrate take one tablet by 180tabs Silcoff, 08/29/2018 mouth twice a day Mango Acosta 100mg Tablets Oxycodone HCL take one tablet by 180tabs M51.16 Silcoff, 01/25/2018 15mg mouth every 4-6 Mango Acosta Tablets hours as needed for severe pain, maximum daily dose 6 tabs *fill when due Incruse Ellipta Inhale 1 puff 30units J44.9 Silcoff, 01/25/2018 Daily For COPD Mango Acosta 62.5mcg/Inh Aerosol Ventolin HFA 2 puffs q4-6 hours 18gm J45.20 Silcoff, 01/03/2018 as needed Mango Acosta 108(90Base) mcg/Act Aerosol Mens 50+ Advanced daily Unknown 11/09/2017 Capsules Ibuprofen Take 1 Tablet By 270tabs M15.0 Silcoff, 06/06/2017 800mg Mouth Three Times Mango Acosta Tablets A Day as Needed For Pain. Max 3 Tabs/Day M51.16 Alprazolam 1/2-1 tab by mouth 90tabs F41.9 Silcoff, 05/03/2017 1mg Tablets three times a day as Mango Acosta needed anxiety/panic *fill when due Gabapentin take 1 tablet by 360tabs M51.16 Silcoff, 05/03/2017 600mg Tablets mouth 4 times a day Mango Acosta as needed for nerve pain Atorvastatin Calcium Take 1 Tablet By 90tabs Tanvi, 01/16/2017 20mg Mouth Every Day Mango Acosta Tablets Cyclobenzaprine HCL take 1 tablet by 90tabs Silcoff, 10mg mouth three times a Mango Acosta Tablets day as needed for spasms Aspirin Low Strength 1 by mouth every day Unknown 81mg Chewtabs History Medications Chantix Continuing Use as Directed On 168Tablet Carley Tim, 2018 - Month Josh Package PA 04/26/2019 1mg Tablets Chantix Continuing Use as Directed On 168Tablet Carley Tim, 2018 - Month Josh Package PA 04/03/2019 1mg Tablets Chantix Continuing Use as Directed On 168Tablet Carley Tim, 2018 - Month Josh Package PA 04/02/2019 1mg Tablets Chantix Continuing use as directed on 1pack Dave Tinajero, 03/03/2019 - Month Josh package MBlaine 03/24/2019 1mg Tablets Immunizations CPT Code Status Date Vaccine Lot # [id number] Given 02/28/2018 Adacel or Boostrix, TDaP [id number] Given 07/31/2017 Influenza Virus Vaccine, Quadrivalent, Split, [id number] Preservative Free Vital Signs Date Vital Result Comment 08/06/2019 11:25am BP Systolic 116 mmHg BP Diastolic 70 mmHg Body Temperature 97.5 F Weight 203.00 lb 04/26/2019 4:33pm BP Systolic 102 mmHg BP Diastolic 74 mmHg Body Temperature 98.6 F Weight 196.00 lb Results Description No Information Available Procedures Description No Information Available Medical Devices Description No Information Available Encounters Type Date Location Provider Dx Diagnosis Office Visit 08/06/2019 Main Office Carley Tim PA A09 Infectious 11:25a gastroenteritis and colitis, unspecified M48.07 Spinal stenosis, lumbosacral region M25.559 Pain in unspecified hip F17.210 Nicotine dependence, cigarettes, uncomplicated Office Visit 04/26/2019 4:00p Main Office Alexus Bowser K12.30 Oral mucositis P.A. 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 04/26/2019 Z79.891 jail (current) use of opiate analgesic Hannah Arguello Plan of Treatment Future Appointment(s):02/04/2020 1:50 pm - Carley Tim PA at [id number] - Hannah ArguelloK12.30 Oral mucositis (ulcerative), unspecifiedNew Medication:Lidocaine HCL 4 % - 15 milliliters swished in the mouth and spit out no more frequently than every 3hoursComments:likely all viral but the degree of pain in his jaw might be from infection of the severely decayed teeth. discussed that the ulcer is viral and that treating the symptoms is needed. Pain will likely not go away with the antibiotic but that I am concerned has tooth infection as wellFollow up:if this becmone much more painful you might need to go to ED can try tylenol between the ibup for pain management give the pain about 7 days to get nylobkK45.7 Periapical abscess without sinusNew Medication:Amoxicillin 500 mg - 1 three times a day a day x 7 days for dental fqliuhthrC65.07 Spinal stenosis, lumbosacral regionFollow up:refilled the oxycodone 15 mg but will likely not be able to black pickler until later next week as was filled at the pharmacy on 04/04/19Z79.891 social service worker (current) use of opiate analgesicComments:Discussed that he has take the meds too fast and that I will not give him another narcotic at this time. will need to wait until next week. pt thinks has some extra somewhere in his house that he had saved before that he has been trying to find.Reviewed sxs he might have if he goes into withdrawl : discussed that [facility] be starting to have some of those sxs now: feeliing of slight fever he mentioned Functional Status Description No Information Available Mental Status Description No Information Available Referrals Description No Information Available
--- OUTSIDE RECORDS SUMMARY | 2019-09-28 16:59 | XMS REPORT ---
:1960 Author Name Agustin Pablo [address] [address] Care Team Providers Name Role Phone Agustin Pablo Unavailable Unavailable Allergies, Adverse Reactions, Alerts Allergy Code CodeSystem Reaction Severity Status Substance RxNorm Medications Medication Medication Medication Start Route Dose Status Fill Code CodeSystem Date Instructions RxNorm NoCurrentDosage Active NoCurrentFrequency RxNorm NoCurrentDosage Active NoCurrentFrequency RxNorm NoCurrentDosage Active NoCurrentFrequency RxNorm NoCurrentDosage Active NoCurrentFrequency RxNorm NoCurrentDosage Active NoCurrentFrequency RxNorm NoCurrentDosage Active NoCurrentFrequency RxNorm NoCurrentDosage Active NoCurrentFrequency RxNorm NoCurrentDosage Active NoCurrentFrequency RxNorm NoCurrentDosage Active NoCurrentFrequency RxNorm NoCurrentDosage Active NoCurrentFrequency RxNorm NoCurrentDosage Active NoCurrentFrequency RxNorm NoCurrentDosage Active NoCurrentFrequency RxNorm NoCurrentDosage Active NoCurrentFrequency RxNorm NoCurrentDosage Active NoCurrentFrequency RxNorm NoCurrentDosage Active NoCurrentFrequency RxNorm NoCurrentDosage Active NoCurrentFrequency RxNorm NoCurrentDosage Active NoCurrentFrequency RxNorm NoCurrentDosage Active NoCurrentFrequency RxNorm NoCurrentDosage Active NoCurrentFrequency RxNorm NoCurrentDosage Active NoCurrentFrequency RxNorm NoCurrentDosage Active NoCurrentFrequency RxNorm NoCurrentDosage Active NoCurrentFrequency RxNorm NoCurrentDosage Active NoCurrentFrequency RxNorm NoCurrentDosage Active NoCurrentFrequency RxNorm NoCurrentDosage Active NoCurrentFrequency RxNorm NoCurrentDosage Active NoCurrentFrequency RxNorm NoCurrentDosage Active NoCurrentFrequency RxNorm NoCurrentDosage Active NoCurrentFrequency RxNorm NoCurrentDosage Active NoCurrentFrequency RxNorm NoCurrentDosage Active NoCurrentFrequency Hospital Discharge Medications Medication Direction Start Date Status Indications Fill Instuctions No Discharge Medication Problems Problem Name Code CodeSystem Start Date End Date Status SNOMED-CT 2018-12-21 Active SNOMED-CT 2018-12-27 Active SNOMED-CT 2018-12-27 Active Laboratory Values/Results Test Test Code Code System Actual Result Date LOINC Procedures Procedure Name Code CodeSystem Target Site Date of Procedure SNOMED-CT () 2019-01-23 SNOMED-CT () 2019-01-30 SNOMED-CT () 2019-02-22 SNOMED-CT () 2019-03-01 SNOMED-CT () 2019-03-14 SNOMED-CT () 2019-03-28 SNOMED-CT () 2019-04-11 SNOMED-CT () 2019-05-16 SNOMED-CT () 2019-06-13 SNOMED-CT () 2019-06-18 SNOMED-CT () 2019-06-27 SNOMED-CT () 2018-12-31 Encounter Diagnosis Code CodeSystem Description Date Finding Finding Status Code [id number] [facility] - 2018-- - Active Individual 30 min 6 SNOMED-CT Vital Signs Vitals Date Value Immunizations Vaccine Name Vaccine Code CodeSystem Date Status Social History Element Description Start Date End Date Code CodeSystem Description SNOMED-CT Hospital Discharge Instructions Reason For Referral
[2019-09-28] MEDS ORDERED: NS 0.9% 1000 ML** 1,000 ML IV ONE (17:13)
[2019-09-28] MEDS ORDERED: Ondansetron INJ* 2 MG/ML VIAL IV ONE (17:14)
--- NOTE | 2019-09-28 17:21 | ED ---
Complex/Multi-Sys Presentation - HPI Summary HPI Summary: 59 y/o male presents to [facility] after a seizure that occurred earlier today. Two episodes of seizure reported, family states that the patient was "out" for 45- 60 seconds. The patient is disoriented and experiencing memory loss; he has vomited multiple times as well. He is also experiencing periodic bradycardia. In the room, patient dropped from HR 60s to 30s for a few seconds. This spontaneously resolved. The patient's family notes that these episodes are abnormal to their knowledge. The patient rarely drinks and smokes medical marijuana for back pain. He has a Hx of back surgery earlier this year and also has a Hx of shoulder surgery. His family notes that he is due for further back and hip surgery due to issues with muscles in those areas. - History Of Current Complaint Chief Complaint: EDSeizure Time Seen by Provider: 09/28/19 16:53 Hx Obtained From: Patient, Family/Print Developer Automatic Onset/Duration: Sudden Onset, Resolved Timing: Intermittent, Lasting: - seconds, Seconds Severity Currently: None Aggravating Factor(s): nothing Alleviating Factor(s): nothing Associated Signs And Symptoms: Positive: Vomiting, Other - seizure, bradycardia , memory loss, confusion - Allergies/Home Medications Allergies/Adverse Reactions: Allergies Allergy/AdvReac Type Severity Reaction Status Date / Time No Known Allergies Allergy Verified 09/28/19 16:53 Home Medications: Home Medications Atorvastatin* [Lipitor 20 MG*] 20 mg PO DAILY 09/28/19 [History Confirmed ] Cetirizine* [ZyrTEC 10 MG TAB*] 10 mg PO DAILY PRN 09/28/19 [History Confirmed 09/28/19] Cyclobenzaprine TAB* [Flexeril 10 MG TAB*] 10 mg PO QID PRN 09/28/19 [History Confirmed 09/28/19] Metoprolol Tartrate 100 mg PO BID 09/28/19 [History Confirmed 09/28/19] Ondansetron HCl [Zofran 4 MG TAB] 4 mg PO Q6H PRN 09/28/19 [History Confirmed ] Oxycodone HCl [Roxicodone] 15 mg PO Q4H PRN MDD 6 tabs 09/28/19 [History Confirmed 09/28/19] PMH/Surg Hx/FS Hx/Imm Hx Endocrine/Hematology History: Denies: Hx Diabetes, Hx Thyroid Disease Cardiovascular History: Reports: Hx Coronary Artery Disease - coronary artery calcifications, Hx Hypertension - MEDICATION Denies: Hx Pacemaker/ICD, Other Cardiovascular Problems/Disorders Respiratory History: Reports: Hx Asthma - ROUTINE INHALER, Hx Chronic Obstructive Pulmonary Disease (COPD), Hx Sleep Apnea Denies: Other Respiratory Problems/Disorders GI History: Reports: Hx Gastroesophageal Reflux Disease - on medication Denies: Hx Crohn's Disease, Other GI Disorders History: Denies: Hx Renal Disease, Other Problems/Disorders Musculoskeletal History: Reports: Hx Arthritis - all over, Hx Back Problems Denies: Other Musculoskeletal History Sensory History: Reports: Hx Contacts or Glasses - glasses Denies: Hx Hearing Aid Opthamlomology History: Reports: Hx Contacts or Glasses - glasses Neurological History: Reports: Hx Headaches, Hx Seizures - 1 SEIZURE A CHILD , Other Neuro Impairments/Disorders - 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ER[place] PLATING 2015;[place] RIGHT HAND SURGERY 2003;x2,. left ANKLE SURGERY WITH PINNING 2008;. SURGERY FOR A DEEP LACERATION LEFT THIGH;. LUMBAR 02/15 Hx Anesthesia Reactions: No - Immunization History Date of Influenza Vaccine: 08/2017 Infectious Disease History: No Infectious Disease History: Denies: Traveled Outside the [place] in Last 30 Days - Family History Known Family History: Positive: Cardiac Disease Negative: Diabetes - Social History Alcohol Use: None Alcohol Amount: hx Hx Substance Use: Yes Substance Use Type: Reports: Marijuana Substance Use Comment - Amount & Last Used: DAILY to help him sleep, will refrain until after surgery Hx Tobacco Use: Yes Smoking Status (MU): Heavy Every Day Tobacco Smoker Type: Cigarettes Amount Used/How Often: 1 PPD X 35 YEARS Length of Time of Smoking/Using Tobacco: 35 y Have You Smoked in the Last Year: Yes Review of Systems Positive: Other - periodic bradycardia Positive: Vomiting Neurological: Other - disorientation, seizure, memory loss All Other Systems Reviewed And Are Negative: Yes Physical Exam - Summary Physical Exam Summary: Appearance: The patient is well-nourished in no acute distress and in no acute pain. Skin: The patient is diaphoretic. HEENT: The head is normocephalic and atraumatic. The pupils are equal and reactive. The conjunctivae are clear and without drainage. Nares are patent and without drainage. Mouth reveals moist mucous membranes, and the throat is without erythema and exudate. The external ears are intact. The ear canals are patent and without drainage. The tympanic membranes are intact. Neck: The neck is supple with full range of motion and non-tender. There are no carotid bruits. There is no neck vein distension. Respiratory: Chest is non-tender. Lungs are clear to auscultation and breath sounds are symmetrical and equal. Cardiovascular: The patient is experiencing sinus bradycardia. There is no murmur or rub auscultated. There is no peripheral edema and pulses are symmetrical and equal. Abdomen: The abdomen is soft and non-tender. There are normal bowel sounds heard in all four quadrants and there is no organomegaly palpated. Musculoskeletal: There is no back tenderness noted. Extremities are non-tender with full range of motion. There is good capillary refill. There is no peripheral edema or calf tenderness elicited. Neurological: Patient is alert and oriented to person, place and time. The patient has symmetrical motor strength in all four extremities. Cranial nerves are grossly intact. Deep tendon reflexes are symmetrical and equal in all four extremities. GCS 15. Psychiatric: The patient has an appropriate affect and does not exhibit any anxiety or depression. Triage Information Reviewed: Yes Vital Signs On Initial Exam: Initial Vitals Temp Pulse Resp BP Pulse Ox 98.2 F 68 16 172/107 98 09/28/19 16:48 09/28/19 16:48 09/28/19 16:48 09/28/19 16:48 09/28/19 16:48 Vital Signs Reviewed: Yes Procedures - Sedation Patient Received Moderate/Deep Sedation with Procedure: No Diagnostics - Vital Signs Vital Signs Temp Pulse Resp BP Pulse Ox 09/28/19 16:48 98.2 F 68 16 172/107 98 - Laboratory Result Diagrams: 09/30/19 12:30 09/30/19 12:30 Lab Statement: Any lab studies that have been ordered have been reviewed, and results considered in the medical decision making process. - CT BRAIN CT CT Interpretation Completed By: Radiologist Summary of CT Findings: IMPRESSION: No intracranial bleed, suspicious mass, or mass effect. Ventricles appear. unremarkable. THIS REPORT WAS REVIEWED BY ED PHYSICIAN. - EKG 1727 Cardiac Rate: Bradycardia EKG Rhythm: Sinus Bradycardia - HR 56bpm Summary of EKG Findings: EKG shows sinus bradycardia with rate of 56bpm. This EKG was reviewed and interpreted by the ER physician. Re-Evaluation - Re-Evaluation First Eval Re-Evaluation Time: 19:06 Comment: Per RN note, "Pt became asystolic on the monitor. Multiple RN to bedside. Pt unresponsive and pt apenic and pulseless. Pt was pale with eyes closed. Code called and before compressions could be initiated, respirations and pulse returned. Pt arousable. Pt bradycardic in the 50's initially and returned to 60's in a sinus rhythm. Pt noted to have weak radial pulses. BP noted to be stable. Dr Edwards to bedside. Dr. Wilkins notified. Pt attached to zoll monitor and crash cart at bedside. Pt A O x 3 and interacting appropriately with staff. Pt denies chest pain, sob, and nausea. Pt only complaint at this time is "feeling tired"." Second Eval Re-Evaluation Time: 19:51 Comment: Patient with another occurrence of bradycardia and syncope lasting 2 seconds. He was placed in trandelenburg position, HR returned to NSR with rate of 60s. Complex Multi-Symp Course/Dx Course Of Treatment: During my initial evaluation of the patient he had a sudden bradycardic episode that lasted about 15-20 seconds. During that time his heart rate got down into the 20s and then gradually increased again. He was not answering my questions during the event but quickly goes back to normal. He was placed on a monitor while labs and EKG were obtained. He had another episode while I was in another patient's room that I missed. He had an episode during which he gradually got slower and then had about a 20 second pause before he then gradually picked up again. Again he was completely back to normal very quickly. I asked the hospitalist to evaluate him. Hospitalists saw the patient and consult to Dr. Shaffer. He was admitted to the intensive care unit. He had a total of about 5 or 6 episodes in the emergency department. During 2 of them he had sinus pauses the longest of which was about 20 seconds. He has been external pacer pads placed on him during his ED visit subsequent to the initial bradycardic episode when I was present in the room. - Diagnoses Provider Diagnoses: Sinus pause, Syncope - Physician Notifications Discussed Care Of Patient With: Timoteo Martin Time Discussed With Above Provider: 19:45 Instructed by Provider To: Other - Patient's case discussed with Dr. Martin, Dr. Martin accepts for admission. Admit orders placed at this time. - Critical Care Time Critical Care Time: 30-74 min - 30 minutes CCT Discharge ED - Sign-Out/Discharge Documenting (check all that apply): Patient Departure - admit - Discharge Plan Condition: Fair Disposition: ADMITTED TO [facility] - Billing Disposition and Condition Condition: FAIR Disposition: Admitted to [facility] - Attestation Statements Document Initiated by Lexy: Yes Documenting Scribe: SHOSHANA JACKSON Provider For Whom Lexy is Documenting (Include Credential): MOISES WILKINS MD Scribe Attestation: SHOSHANA Dowling, scribed for MOISES WILKINS MD on 09/30/19 at 1455. Scribe Documentation Reviewed: Yes Provider Attestation: The documentation as recorded by the SHOSHANA peres accurately reflects the service I personally performed and the decisions made by me, MOISES WILKINS MD Status of Scribe Document: Viewed
[2019-09-28 17:49] LABS: ABS Eosinophils 0.1 10^3/ul (0-0.6); ABS Lymphocytes 1.3 10^3/ul (1.0-4.8); ABS Monocytes 0.4 10^3/ul (0-0.8); ABS Neutrophils 5.4 10^3/ul (1.5-7.7); Eosinophil % 1.3 %; Hematocrit 41 % (42-52); Hemoglobin 14.4 g/dL (14.0-18.0); Lymphocyte % 18.1 %; Mean Corpuscular HGB Conc 35 g/dL (31-36); Mean Corpuscular Hemoglobin 32 pg (27-31); Mean Corpuscular Volume 90 fL (80-94); Mean Platelet Volume 6.9 fL (7.4-10.4); Platelet Count 408 10^3/uL (150-450); Red Cell Distribution Width 14 % (10-15); White Blood Count 7.3 10^3/uL (3.5-10.8)
[2019-09-28 17:55] LABS: INR 0.89 (0.82-1.09)
[2019-09-28 18:12] LABS: ALT 16 U/L (7-52); AST 15 U/L (13-39); Albumin 4.3 g/dL (3.2-5.2); Albumin/Globulin Ratio 1.3 (1-3); Alkaline Phosphatase 75 U/L (34-104); Anion Gap 7 mmol/L (2-11); Blood Urea Nitrogen 20 mg/dL (6-24); CO2 Carbon Dioxide 27 mmol/L (22-32); Calcium 9.6 mg/dL (8.6-10.3); Chloride 102 mmol/L (101-111); EGFR African American 82.3 (>60); Globulin 3.2 g/dL (2-4); Glucose 128 mg/dL (70-100); Magnesium 2.2 mg/dL (1.9-2.7); Potassium 4.3 mmol/L (3.5-5.0); Sodium 136 mmol/L (135-145); Total Protein 7.5 g/dL (6.4-8.9)
[2019-09-28 18:26] LABS: TSH (Thyroid Stimulating Horm) 0.79 mcIU/mL (0.34-5.60)
[2019-09-28] MEDS ORDERED: Ondansetron INJ* 2 MG/ML VIAL IV PRN (19:45)
[2019-09-28] MEDS ORDERED: Albuterol HFA INHALER* 8 gm MDI INH PRN (19:58)
[2019-09-28] MEDS ORDERED: Ondansetron TAB* 4 MG PO PRN (19:58)
[2019-09-28] MEDS ORDERED: Atropine SYRINGE* 0.1 MG/ML 10 ML SYRINGE (1 MG) IV PUSH ONE (20:56)
[2019-09-28] MEDS ORDERED: Ibuprofen TAB* 800 MG PO SCH (21:00)
--- NOTE | 2019-09-28 21:04 | HP ---
ADMISSION HISTORY AND PHYSICAL: ADDENDUM: Per the recommendation of Cardiology, the patient was started on dopamine drip at 5 mcg/kg/hour in an to attempt to bridge while the metoprolol gets out of the system to avoid a temporary pacemaker wire. The patient will be continued to be monitored in the ICU while on this drip. RADHA CONNELL [id number]/[facility] #: [id number] FARAZ
[2019-09-28] MEDS: DOPamine 800 MG/250 ML IVPREM* 800 MG/250 ML ML CENTR SCH (21:21)
[2019-09-28 21:23] LABS: Free T4 0.74 ng/dL (0.61-1.12)
[2019-09-28] MEDS: Gabapentin CAP(*) 300 MG PO SCH (21:27)
[2019-09-28] MEDS: Enoxaparin(*) 30 MG/0.3 ML SYR SUBCUT SCH (21:27)
[2019-09-28] MEDS: Pantoprazole TAB * 40 MG TAB PO SCH (22:02)
[2019-09-28 23:04] LABS: Erythrocyte Sed Rate 30 mm/Hr (0-19)
[2019-09-28 23:33] LABS: Urine Appearance Clear; Urine Bilirubin Negative (Negative); Urine Blood Negative (Negative); Urine Color Yellow; Urine Glucose Negative (Negative); Urine Ketones Trace (Negative); Urine Nitrite Negative (Negative); Urine Protein Negative (Negative); Urine Specific Gravity 1.015 (1.010-1.030); Urine Urobilinogen Negative (Negative)
[2019-09-28] MEDS: Mometasone/Formoter 200/5 MDI INH SCH (23:43)
[2019-09-29 00:32] LABS: Urine Benzodiazepine Screen None Detected (None Detect); Urine Opiates Screen None Detected (None Detect)
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
[2019-09-29] MEDS ORDERED: ALPRAZolam TAB* 0.5 MG PO ONE (02:41)
[2019-09-29 05:25] LABS: ABS Basophils 0.1 10^3/ul (0-0.2); ABS Eosinophils 0.1 10^3/ul (0-0.6); ABS Lymphocytes 2.1 10^3/ul (1.0-4.8); ABS Monocytes 1.5 10^3/ul (0-0.8); ABS Neutrophils 14.1 10^3/ul (1.5-7.7); Eosinophil % 0.4 %; Hematocrit 44 % (42-52); Hemoglobin 14.7 g/dL (14.0-18.0); Lymphocyte % 11.8 %; Mean Corpuscular HGB Conc 34 g/dL (31-36); Mean Corpuscular Hemoglobin 31 pg (27-31); Mean Corpuscular Volume 91 fL (80-94); Mean Platelet Volume 6.9 fL (7.4-10.4); Platelet Count 440 10^3/uL (150-450); Red Blood Count 4.77 10^6 /uL (4.18-5.48); Red Cell Distribution Width 14 % (10-15); White Blood Count 17.9 10^3/uL (3.5-10.8)
[2019-09-29 05:42] LABS: Calcium 8.9 mg/dL (8.6-10.3); EGFR African American 79.8 (>60); HDL Cholesterol 53.3 mg/dL; Potassium 3.7 mmol/L (3.5-5.0)
[2019-09-29] MEDS: Nitro 2% OINT* (Nitroglycerin) 1 INCH/PAK PAK TOPICAL SCH ×4 (06:02→23:41)
[2019-09-29 06:33] LABS: Troponin I 0.01 ng/mL (<0.03)
[2019-09-29] MEDS ORDERED: Dextrose 50% VIAL 50 ml IV PUSH PRN (07:48)
[2019-09-29] MEDS ORDERED: oxyCODONE TAB* 5 MG TAB PO ONE (07:49)
[2019-09-29] MEDS: Insulin LISPRO* 1 UNITS UNIT SUBCUT SCH ×5 (08:00→23:51)
[2019-09-29] MEDS ORDERED: Potassium Chloride* LIQUID 20 MEQ/15 ML UDC PO ONE (08:05)
[2019-09-29] MEDS: DOPamine 800 MG/250 ML IVPREM* 800 MG/250 ML ML CENTR SCH ×2 (08:08→22:53)
[2019-09-29 08:34] LABS: Alcohol < 10 mg/dL (<10)
[2019-09-29] MEDS: Mometasone/Formoter 200/5 MDI INH SCH ×2 (08:46→19:38)
[2019-09-29] MEDS: SPIRIVA Respimat* (tiotropium) 2.5 mcg/inh Inhaler INH SCH (08:46)
[2019-09-29] MEDS ORDERED: Atorvastatin* 20 MG TAB PO SCH (09:00)
[2019-09-29] MEDS ORDERED: Lisinopril TAB* 10 MG PO SCH (09:00)
[2019-09-29] MEDS ORDERED: Influenza VAC *QUAD* 2019-20* 0.5 ML SYRINGE IM ONE (09:00)
[2019-09-29] MEDS ORDERED: Pneumococcal *Vac Polyvalent 0.5 ML VIAL IM ONE (09:00)
[2019-09-29] MEDS: Sertraline* 50 MG TAB PO SCH (09:29)
[2019-09-29] MEDS: Gabapentin CAP(*) 300 MG PO SCH ×4 (09:30→20:27)
[2019-09-29] MEDS: Pantoprazole TAB * 40 MG TAB PO SCH ×2 (09:32→20:27)
[2019-09-29 10:59] LABS: Influenza A Molecular NEGATIVE (Negative); Influenza B Molecular NEGATIVE (Negative)
[2019-09-29] MEDS: Acetaminophen TAB* 325 MG PO PRN ×2 (12:38→23:02)
--- NOTE | 2019-09-29 13:44 | ECHO ---
*[facility]* [place] [address] Fax #: [phone] Transthoracic Echocardiogram Patient: Basim Tovar : 1960 Study Date: 09/29/2019 Age: 59 Gender: M HR: 84 bpm Height: 69 in /175.3 cm BSA: 2.07 m^2 Weight: 199.6 lb /90.7 kg BMI: 29.5 kg/m^2 *[employer] Police: * Nilda Barriga [facility] *Referring Physician: * Juan Perez *Reading Physician: * Jose G Shaffer MD Indications: Chest Pain, unspecified. Syncope. History: Chronic obstructive pulmonary disease. Risk factors: Current tobacco use. Hypertension. Dyslipidemia. Conclusions Summary: - Left ventricle: The cavity size is normal. Wall thickness is mildly increased. Systolic function is normal. The estimated ejection fraction is 65-70%. Wall motion is overall normal to hyperdynamic; cannot exclude subtle relative hypokineis of the distal lateral wall in the apical 4 chamber view. There are no definite regional wall motion abnormalities. - Right ventricle: The cavity size is mildly dilated. Wall thickness is mildly increased. Systolic function is low normal. - Left atrium: The atrium is mildly dilated. - Right atrium: The atrium is mildly dilated. - Mitral valve: There is trace regurgitation. - Ascending aorta: The ascending aorta is mildly dilated. Study data: Transthoracic echocardiogram. Procedure: Transthoracic echocardiography was performed. Image quality was fair. Complete 2D, spectral Doppler, and color flow Doppler. Location: ICU Patient status: Inpatient. Patient room number: ICU-04. Rhythm: Normal sinus rhythm. Findings Left ventricle: The cavity size is normal. Wall thickness is mildly increased. Systolic function is normal. The estimated ejection fraction is 65-70%. Wall motion is overall normal to hyperdynamic; cannot exclude subtle relative hypokineis of the distal lateral wall in the apical 4 chamber view. There are no definite regional wall motion abnormalities. Doppler parameters are consistent with abnormal left ventricular relaxation (grade 1 diastolic dysfunction). Right ventricle: The cavity size is mildly dilated. Wall thickness is mildly increased. The moderator band is in a normal position. Systolic function is low normal. Left atrium: The atrium is mildly dilated. Right atrium: The atrium is mildly dilated. Mitral valve: The leaflets are mildly thickened. There is no evidence of stenosis. There is trace regurgitation. Aortic valve: The valve is trileaflet. The leaflets are mildly thickened. There is no evidence of stenosis. There is no significant regurgitation. Tricuspid valve: The leaflets are normal thickness. There is no evidence of stenosis. There is physiologic regurgitation. Pulmonic valve: The leaflets are normal thickness. There is no evidence of stenosis. There is trace regurgitation. Aorta: Aortic root: The aortic root is appears normal. Ascending aorta: The ascending aorta is mildly dilated. Aortic arch: The aortic arch is appears normal. Pericardium: A prominent pericardial fat pad is present. There is no significant pericardial effusion. Pulmonary arteries: The main pulmonary artery is normal-sized. Systolic pressure can not be accurately estimated. Systemic veins: Inferior vena cava: The vessel is normal in size. There is (>= 50%) respiratory change in the IVC dimension. Measurements Left ventricle Value Ref Right atrium continued Value Ref СЕРГЕЙ, LAX 4.7 cm 4.2 - 5.8 SI dim, ES, A4C 4.3 cm 3.4 - ESD, LAX 3.6 cm 2.5 - 4.0 5.3 FS, LAX (L) 23 % 25 - 43 SI dim/bsa, ES, 2.1 cm/m^2 1.8 - PW, ED, LAX (H) 1.1 cm 0.6 - 1.0 A4C 3.0 FS (L) 23 % 25 - 43 Estimated RAP 3 mm Hg -------- PW, ED (H) 1.1 cm 0.6 - 1.0 E', lat марина, TDI 16.3 cm/sec >=10.0 Aortic valve Value R ef E/e', lat марина, 5 Марина diam, ED 2.1 cm ---- ---- TDI Peak v, S 1.77 m/sec -------- E', med марина, TDI 7.7 cm/sec >=7.0 VTI, S 26.6 cm - ------- E/e', med марина, 11 Mean grad, S 7.0 mm Hg ---- ---- TDI Peak grad, S 13.0 mm Hg -------- E', avg, TDI 12.0 cm/sec LVOT/AV, VTI ratio 0.79 ---- ---- E/e', avg, TDI 7 <=14 Mitral valve Value Ref LVOT Value Ref Peak E 0.86 m/sec -------- Peak betsy, S 1.67 m/sec Peak A 0.68 m/sec -------- VTI, S 21.0 cm Decel time 232 ms -------- Peak grad, S 11 mm Hg Peak grad, D 3.0 mm Hg -------- Mean grad, S 5 mm Hg Peak E/A ratio 1.3 -------- Ventricular septum Value Ref Pulmonic valve Value Ref IVS, ED (H) 1.1 cm 0.6 - 1.0 Peak v, S 1.12 m/sec -------- Peak grad, S 5.0 mm Hg -------- Right ventricle Value Ref AW thickness, ED (H) 0.6 cm 0.1 - 0.5 Aortic root Value Ref СЕРГЕЙ, LAX 4.0 cm Root diam 3.3 cm <4.2 СЕРГЕЙ minor ax, (H) 4.4 cm 1.9 - 3.5 A4C mid Ascending aorta Value Ref AAo AP diam, S 3.9 cm -------- Left atrium Value Ref AP dim, ES (H) 4.30 cm 3.00 - Aortic arch Value Ref 4.00 Arch diam 3.1 cm -------- ML dim, A4C 4.6 cm SI dim, A4C 6.0 cm Decending aorta Value Ref Vol/bsa, ES, 1-p 29 ml/m^2 12 - 37 Brittany peak betsy 0.89 m/sec -------- A4C Vol/bsa, ES, A/L 28 ml/m^2 16 - 34 Inferior vena cava Value Ref Diam 1.8 cm -------- Right atrium Value Ref SI dim, ES 4.3 cm 3.4 - 5.3 ML dim, ES, A4C (H) 4.7 cm 2.6 - 4.4 Legend: (L) and (H) eyal values outside specified reference range. Prepared and electronically signed by Jose G Shaffer MD 09/29/2019 13:44
--- NOTE | 2019-09-29 13:57 | PN ---
Date of Service: 09/29/19 Vital Signs: Temp Pulse Resp BP SpO2 FiO2 98.8 F 106 16 131/110 93 60 09/29/19 11:38 09/29/19 13:00 09/29/19 13:00 09/29/19 12:46 09/29/19 13:00 09/28 23:17 Physical Exam: Gen:nad HEENT: nc at Lungs: rhonchi Left lung Cardiac: tachycardic Abdomen:soft nontender non distended Extremities:no edema Neuro: alert aware, aox 3, moves all extremities Fluid Balance (Past 24 Hours): I= O= Net Intake & Output 09/27/19 09/28/19 09/29/19 09/30/19 06:59 06:59 06:59 06:59 Intake Total 176 Output Total 1100 600 Balance -924 -600 Weight 201 lb 9 oz Intake: Medicated IV 176 CC - Dopamine 176 Output: Urine 1100 Lopez 600 Labs: Laboratory Results - last 24 hr 09/28/19 09/28/19 09/28/19 17:31 17:31 17:31 WBC 7.3 RBC 4.50 Hgb 14.4 Hct 41 L MCV 90 MCH 32 H MCHC 35 RDW 14 Plt Count 408 MPV 6.9 L Neut % (Auto) 74.0 Lymph % (Auto) 18.1 Luna % (Auto) 6.1 Eos % (Auto) 1.3 Baso % (Auto) 0.5 Absolute Neuts (auto) 5.4 Absolute Lymphs (auto) 1.3 Absolute Monos (auto) 0.4 Absolute Eos (auto) 0.1 Absolute Basos (auto) 0.0 Absolute Nucleated RBC 0.0 Nucleated RBC % 0.0 ESR 30 H INR (Anticoag Therapy) Patient Temperature ABG pH ABG pH (Temp Correct) ABG pCO2 ABG pCO2 (Temp Corrct ABG pO2 ABG pO2 (Temp Correct ABG HCO3 ABG O2 Saturation ABG Base Excess Respiration Rate O2 Delivery Device Ventilator Type Vent Mode FiO2 Inspiratory Time PEEP Pressure Support Pressure Control EPAP IPAP BiPAP Sodium 136 Potassium 4.3 Chloride 102 Carbon Dioxide 27 Anion Gap 7 BUN 20 Creatinine 1.11 Est GFR ( Amer) 82.3 Est GFR (Non-Af Amer) 68.0 BUN/Creatinine Ratio 18.0 Glucose 128 H POC Glucose (mg/dL) Hemoglobin A1c Lactic Acid 1.5 Calcium 9.6 Magnesium 2.2 Total Bilirubin 0.30 AST 15 ALT 16 Alkaline Phosphatase 75 Troponin I 0.00 C-Reactive Protein 2.70 B-Natriuretic Peptide Total Protein 7.5 Albumin 4.3 Globulin 3.2 Albumin/Globulin Ratio 1.3 Triglycerides Cholesterol LDL Cholesterol HDL Cholesterol TSH 0.79 Free T4 0.74 Urine Color Urine Appearance Urine pH Ur Specific [place] Urine Protein Urine Ketones Urine Blood Urine Nitrate Urine Bilirubin Urine Urobilinogen Ur Leukocyte Esterase Urine Glucose Urine Opiates Screen Ur Barbiturates Screen Ur Phencyclidine Scrn Ur Amphetamines Screen U Benzodiazepines Scrn Urine Cocaine Screen U Cannabinoids Screen Serum Alcohol < 10 Lyme Total Antibody Influenza A (Rapid) Influenza B (Rapid) 09/28/19 09/28/19 09/28/19 17:31 17:31 20:11 WBC RBC Hgb Hct MCV MCH MCHC RDW Plt Count MPV Neut % (Auto) Lymph % (Auto) Luna % (Auto) Eos % (Auto) Baso % (Auto) Absolute Neuts (auto) Absolute Lymphs (auto) Absolute Monos (auto) Absolute Eos (auto) Absolute Basos (auto) Absolute Nucleated RBC Nucleated RBC % ESR INR (Anticoag Therapy) 0.89 Patient Temperature ABG pH ABG pH (Temp Correct) ABG pCO2 ABG pCO2 (Temp Corrct ABG pO2 ABG pO2 (Temp Correct ABG HCO3 ABG O2 Saturation ABG Base Excess Respiration Rate O2 Delivery Device Ventilator Type Vent Mode FiO2 Inspiratory Time PEEP Pressure Support Pressure Control EPAP IPAP BiPAP Sodium Potassium Chloride Carbon Dioxide Anion Gap BUN Creatinine Est GFR ( Amer) Est GFR (Non-Af Amer) BUN/Creatinine Ratio Glucose POC Glucose (mg/dL) Hemoglobin A1c Lactic Acid Calcium Magnesium Total Bilirubin AST ALT Alkaline Phosphatase Troponin I C-Reactive Protein B-Natriuretic Peptide 10 Total Protein Albumin Globulin Albumin/Globulin Ratio Triglycerides Cholesterol LDL Cholesterol HDL Cholesterol TSH Free T4 Urine Color Urine Appearance Urine pH Ur Specific [place] Urine Protein Urine Ketones Urine Blood Urine Nitrate Urine Bilirubin Urine Urobilinogen Ur Leukocyte Esterase Urine Glucose Urine Opiates Screen Ur Barbiturates Screen Ur Phencyclidine Scrn Ur Amphetamines Screen U Benzodiazepines Scrn Urine Cocaine Screen U Cannabinoids Screen Serum Alcohol Lyme Total Antibody Negative Influenza A (Rapid) Influenza B (Rapid) 12/09/28/19 09/28/19 20:11 21:32 22:20 WBC RBC Hgb Hct MCV MCH MCHC RDW Plt Count MPV Neut % (Auto) Lymph % (Auto) Luna % (Auto) Eos % (Auto) Baso % (Auto) Absolute Neuts (auto) Absolute Lymphs (auto) Absolute Monos (auto) Absolute Eos (auto) Absolute Basos (auto) Absolute Nucleated RBC Nucleated RBC % ESR INR (Anticoag Therapy) Patient Temperature Not Reportable ABG pH 7.38 ABG pH (Temp Correct) Not Reportable ABG pCO2 42 ABG pCO2 (Temp Corrct Not Reportable ABG pO2 66 L ABG pO2 (Temp Correct Not Reportable ABG HCO3 24.5 ABG O2 Saturation 95.7 ABG Base Excess -0.4 Respiration Rate Not Reportable O2 Delivery Device n/c Ventilator Type Not Reportable Vent Mode Not Reportable FiO2 37 Inspiratory Time Not Reportable PEEP Not Reportable Pressure Support Not Reportable Pressure Control Not Reportable EPAP Not Reportable IPAP Not Reportable BiPAP Not Reportable Sodium Potassium Chloride Carbon Dioxide Anion Gap BUN Creatinine Est GFR ( Amer) Est GFR (Non-Af Amer) BUN/Creatinine Ratio Glucose POC Glucose (mg/dL) Hemoglobin A1c Lactic Acid Calcium Magnesium Total Bilirubin AST ALT Alkaline Phosphatase Troponin I 0.00 C-Reactive Protein B-Natriuretic Peptide Total Protein Albumin Globulin Albumin/Globulin Ratio Triglycerides Cholesterol LDL Cholesterol HDL Cholesterol TSH Free T4 Urine Color Urine Appearance Urine pH Ur Specific [place] Urine Protein Urine Ketones Urine Blood Urine Nitrate Urine Bilirubin Urine Urobilinogen Ur Leukocyte Esterase Urine Glucose Urine Opiates Screen Ur Barbiturates Screen Ur Phencyclidine Scrn Ur Amphetamines Screen U Benzodiazepines Scrn Urine Cocaine Screen U Cannabinoids Screen Serum Alcohol Lyme Total Antibody Influenza A (Rapid) Negative Influenza B (Rapid) Negative 09/28/19 09/29/19 09/29/19 23:24 00:00 05:13 WBC 17.9 H RBC 4.77 Hgb 14.7 Hct 44 MCV 91 MCH 31 MCHC 34 RDW 14 Plt Count 440 MPV 6.9 L Neut % (Auto) 78.8 Lymph % (Auto) 11.8 Luna % (Auto) 8.6 Eos % (Auto) 0.4 Baso % (Auto) 0.4 Absolute Neuts (auto) 14.1 H Absolute Lymphs (auto) 2.1 Absolute Monos (auto) 1.5 H Absolute Eos (auto) 0.1 Absolute Basos (auto) 0.1 Absolute Nucleated RBC 0.0 Nucleated RBC % 0.0 ESR INR (Anticoag Therapy) Patient Temperature ABG pH ABG pH (Temp Correct) ABG pCO2 ABG pCO2 (Temp Corrct ABG pO2 ABG pO2 (Temp Correct ABG HCO3 ABG O2 Saturation ABG Base Excess Respiration Rate O2 Delivery Device Ventilator Type Vent Mode FiO2 Inspiratory Time PEEP Pressure Support Pressure Control EPAP IPAP BiPAP Sodium Potassium Chloride Carbon Dioxide Anion Gap BUN Creatinine Est GFR ( Amer) Est GFR (Non-Af Amer) BUN/Creatinine Ratio Glucose POC Glucose (mg/dL) Hemoglobin A1c Lactic Acid Calcium Magnesium Total Bilirubin AST ALT Alkaline Phosphatase Troponin I C-Reactive Protein B-Natriuretic Peptide Total Protein Albumin Globulin Albumin/Globulin Ratio Triglycerides Cholesterol LDL Cholesterol HDL Cholesterol TSH Free T4 Urine Color Yellow Urine Appearance Clear Urine pH 6.0 Ur Specific [place] 1.015 Urine Protein Negative Urine Ketones Trace A Urine Blood Negative Urine Nitrate Negative Urine Bilirubin Negative Urine Urobilinogen Negative Ur Leukocyte Esterase Negative Urine Glucose Negative Urine Opiates Screen None detected Ur Barbiturates Screen None detected Ur Phencyclidine Scrn None detected Ur Amphetamines Screen None detected U Benzodiazepines Scrn None detected Urine Cocaine Screen None detected U Cannabinoids Screen Presumptive positive A Serum Alcohol Lyme Total Antibody Influenza A (Rapid) Influenza B (Rapid) 09/29/19 09/29/19 09/29/19 05:13 05:13 11:27 WBC RBC Hgb Hct MCV MCH MCHC RDW Plt Count MPV Neut % (Auto) Lymph % (Auto) Luna % (Auto) Eos % (Auto) Baso % (Auto) Absolute Neuts (auto) Absolute Lymphs (auto) Absolute Monos (auto) Absolute Eos (auto) Absolute Basos (auto) Absolute Nucleated RBC Nucleated RBC % ESR INR (Anticoag Therapy) Patient Temperature ABG pH ABG pH (Temp Correct) ABG pCO2 ABG pCO2 (Temp Corrct ABG pO2 ABG pO2 (Temp Correct ABG HCO3 ABG O2 Saturation ABG Base Excess Respiration Rate O2 Delivery Device Ventilator Type Vent Mode FiO2 Inspiratory Time PEEP Pressure Support Pressure Control EPAP IPAP BiPAP Sodium 132 L Potassium 3.7 Chloride 101 Carbon Dioxide 23 Anion Gap 8 BUN 16 Creatinine 1.14 Est GFR ( Amer) 79.8 Est GFR (Non-Af Amer) 66.0 BUN/Creatinine Ratio 14.0 Glucose 320 H POC Glucose (mg/dL) 128 H Hemoglobin A1c 6.2 H Lactic Acid Calcium 8.9 Magnesium 2.0 Total Bilirubin AST ALT Alkaline Phosphatase Troponin I 0.01 C-Reactive Protein B-Natriuretic Peptide Total Protein Albumin Globulin Albumin/Globulin Ratio Triglycerides 39 Cholesterol 186 LDL Cholesterol 125 HDL Cholesterol 53.3 TSH Free T4 Urine Color Urine Appearance Urine pH Ur Specific [place] Urine Protein Urine Ketones Urine Blood Urine Nitrate Urine Bilirubin Urine Urobilinogen Ur Leukocyte Esterase Urine Glucose Urine Opiates Screen Ur Barbiturates Screen Ur Phencyclidine Scrn Ur Amphetamines Screen U Benzodiazepines Scrn Urine Cocaine Screen U Cannabinoids Screen Serum Alcohol Lyme Total Antibody Influenza A (Rapid) Influenza B (Rapid) Plan: 59 y/o male presents to [facility] after a seizure that occurred earlier today. Two episodes of seizure reported, family states that the patient was "out" for 45- 60 seconds. The patient is disoriented and experiencing memory loss; he has vomited multiple times as well. He is also experiencing periodic bradycardia. In the room, patient dropped from HR 60s to 30s for a few seconds. This spontaneously resolved. Patient had multiple episodes of asystole, started on dopamine drip. episodic asystole in the setting of possible beta sydnee overdose will w/u for infection. will wean off dopamine drip no need for transvenous pacer cardiology input appreciated lyme disease w/u bcx sputum culture f/u trop and ekg cxr with atelectasis legionella urine - neg hold abx for now f/u echo hga1c 6.2 noted dvt ppx Critical Care Time: 45 min
[2019-09-29] MEDS ORDERED: oxyCODONE TAB* 5 MG TAB ONE (20:22)
[2019-09-29] MEDS: Enoxaparin(*) 30 MG/0.3 ML SYR SUBCUT SCH (20:26)
[2019-09-29] MEDS: Cetirizine* 10 MG TAB PO PRN (20:27)
[2019-09-29] MEDS: Atorvastatin* 20 MG TAB PO SCH (20:27)
[2019-09-29] MEDS: oxyCODONE TAB* 5 MG TAB PO PRN (20:28)
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
[2019-09-30] MEDS: Insulin LISPRO* 1 UNITS UNIT SUBCUT SCH ×5 (04:13→20:57)
[2019-09-30] MEDS ORDERED: Nitro Patch/OINT Remove TOPICAL ONE (06:00)
[2019-09-30] MEDS ORDERED: Albuterol/Ipratropium NEB.SOL* Albuterol 2.5 MG/Ipratropium 0.5 MG 3 ML ONE (07:36)
[2019-09-30] MEDS ORDERED: Albuterol/Ipratropium NEB.SOL* Albuterol 2.5 MG/Ipratropium 0.5 MG 3 ML INH ONE (07:39)
[2019-09-30] MEDS: SPIRIVA Respimat* (tiotropium) 2.5 mcg/inh Inhaler INH SCH (07:40)
[2019-09-30] MEDS: Mometasone/Formoter 200/5 MDI INH SCH ×2 (07:40→19:20)
[2019-09-30] MEDS: Pantoprazole TAB * 40 MG TAB PO SCH ×2 (08:30→20:30)
[2019-09-30] MEDS: Sertraline* 50 MG TAB PO SCH (08:30)
[2019-09-30] MEDS: Gabapentin CAP(*) 300 MG PO SCH ×4 (08:30→20:31)
[2019-09-30] MEDS ORDERED: Albuterol/Ipratropium NEB.SOL* Albuterol 2.5 MG/Ipratropium 0.5 MG 3 ML INH PRN (08:52)
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
[2019-09-30] MEDS ORDERED: Pneumococcal *Vac Polyvalent 0.5 ML VIAL IM ONE (09:00)
[2019-09-30] MEDS ORDERED: Influenza VAC *QUAD* 2019-20* 0.5 ML SYRINGE IM ONE (09:00)
[2019-09-30] MEDS: oxyCODONE TAB* 5 MG TAB PO PRN ×3 (09:51→23:54)
--- NOTE | 2019-09-30 10:08 | PN ---
Subjective Date of Service: 09/30/19 Interval History: f/u symptomatic sinus arrest no chest pain or dyspnea one sinus bradycardia to 50's associated with lightheadedness overnight off dopamine since yesterday wbc high, stress reaction, no evidence of infection Medications Active Medications: Acetaminophen (Tylenol Tab*) 650 mg PO Q6H PRN PRN Reason: MILD PAIN or TEMP > 100.4 Last Admin: 09/29/19 23:02 Dose: 650 mg Albuterol (Ventolin Hfa Inhaler*) 2 puff INH Q4H PRN PRN Reason: SOB/WHEEZING Albuterol/Ipratropium (Duoneb (Albuterol 2.5 Mg/Ipratropium 0.5 Mg)) 1 neb INH Q4H PRN PRN Reason: SOB/WHEEZING Atorvastatin Calcium (Lipitor*) 20 mg PO BEDTIME [facility] Last Admin: 09/29/19 20:27 Dose: 20 mg Cetirizine HCl (Zyrtec*) 10 mg PO DAILY PRN PRN Reason: CONGESTION Last Admin: 09/29/19 20:27 Dose: 10 mg Dextrose (Dextrose 50% Vial 50 Ml*) 25 ml IV PUSH .FOR FS < 60 - SS PRN PRN Reason: FS < 60 Gabapentin (Neurontin Cap(*)) 600 mg PO QID [facility] Last Admin: 09/30/19 08:30 Dose: 600 mg Sodium Chloride (Ns 0.9% 1000 Ml) 1,000 mls @ 75 mls/hr IV PER RATE [facility] Insulin Human Lispro (Humalog*) 0 units SUBCUT FS Q4 ICU [facility]; Protocol Last Admin: 09/30/19 08:29 Dose: Not Given Mometasone Furoate/Formoterol Fumar (Dulera 200/5 Mdi*) 2 puff INH 0900,2100 [facility] Last Admin: 09/30/19 07:40 Dose: 2 puff Ondansetron HCl (Zofran Inj*) 4 mg IV Q6H PRN PRN Reason: NAUSEA Oxycodone HCl (Roxycodone Tab*) 15 mg PO Q4H PRN PRN Reason: PAIN - MILD Last Admin: 09/30/19 09:51 Dose: 15 mg Pantoprazole Sodium (Protonix Tab*) 40 mg PO BID [facility] Last Admin: 12/30/19 08:30 Dose: 40 mg Sertraline HCl (Zoloft*) 50 mg PO [facility] Last Admin: 09/30/19 08:30 Dose: 50 mg Tiotropium [place] (Spiriva Respimat 2.5 Mcg) 2 puff INH [facility] Last Admin: 09/30/19 07:40 Dose: 2 puff Objective Vital Signs: Temp Pulse Resp BP Pulse Ox 97.4 F 77 18 118/103 94 09/30/19 07:18 09/30/19 08:01 09/30/19 08:01 09/30/19 08:01 09/30/19 08:01 Oxygen Devices in Use Now: Nasal Cannula Appearance: nad, pleasant Ears/Nose/Mouth/Throat: Clear Oropharnyx Neck: NL Appearance and Movements; NL JVP, Trachea Midline Respiratory: Symmetrical Chest Expansion and Respiratory Effort, Clear to Auscultation Cardiovascular: NL Sounds; No Murmurs; No JVD, RRR, No Edema Abdominal: NL Sounds; No Tenderness; No Distention Extremities: No Edema Skin: No Rash or Ulcers Neurological: Alert and Oriented x 3 Laboratory Results: 09/29/19 05:13 09/29/19 05:13 INR (Anticoag Therapy) 0.89 (0.82-1.09) 09/28/19 17:31 Total Bilirubin 0.30 mg/dL (0.2-1.0) 09/28/19 17:31 AST 15 U/L (13-39) 09/28/19 17:31 ALT 16 U/L (7-52) 09/28/19 17:31 Alkaline Phosphatase 75 U/L (34-104) 09/28/19 17:31 B-Natriuretic Peptide 10 pg/mL (<=100) 09/28/19 17:31 Total Protein 7.5 g/dL (6.4-8.9) 09/28/19 17:31 Albumin 4.3 g/dL (3.2-5.2) 09/28/19 17:31 Globulin 3.2 g/dL (2-4) 09/28/19 17:31 Albumin/Globulin Ratio 1.3 (1-3) 09/28/19 17:31 Triglycerides 39 mg/dL 09/29/19 05:13 Cholesterol 186 mg/dL 09/29/19 05:13 LDL Cholesterol 125 mg/dL 09/29/19 05:13 HDL Cholesterol 53.3 mg/dL 09/29/19 05:13 TSH 0.79 mcIU/mL (0.34-5.60) 09/28/19 17:31 09/28/19 09/28/19 09/29/19 17:31 20:11 05:13 Troponin I 0.00 0.00 0.01 09/29/19 13:56 Troponin I 0.01 Assessment/Plan Reviewed records, telemetry strip and history with patient, agree for pacemaker indication severe symptomatic sinus node disease. I do not think metoprolol 200 mg alone is enough to consider this safely a "reversible" condition at 59 years old with 30 seconds of sinus arrest. Plan pacemaker tomorrow ~ 1:[address] Smith. NPO, IVF ordered and tonights dvt prophylaxis held
[2019-09-30] MEDS ORDERED: Docusate CAP* 100 MG PO PRN (10:50)
[2019-09-30] MEDS: Cetirizine* 10 MG TAB PO PRN (11:15)
[2019-09-30] MEDS ORDERED: Insulin LISPRO* 1 UNITS UNIT SUBCUT SCH (11:30)
[2019-09-30] MEDS: Lisinopril TAB* 10 MG PO SCH (11:55)
[2019-09-30 12:59] LABS: ABS Basophils 0.1 10^3/ul (0-0.2); ABS Eosinophils 0.1 10^3/ul (0-0.6); ABS Lymphocytes 2.2 10^3/ul (1.0-4.8); ABS Monocytes 0.8 10^3/ul (0-0.8); ABS Neutrophils 6.3 10^3/ul (1.5-7.7); Eosinophil % 0.9 %; Hematocrit 39 % (42-52); Hemoglobin 13.4 g/dL (14.0-18.0); Lymphocyte % 23.2 %; Mean Corpuscular HGB Conc 34 g/dL (31-36); Mean Corpuscular Hemoglobin 31 pg (27-31); Mean Corpuscular Volume 91 fL (80-94); Platelet Count 376 10^3/uL (150-450); Red Blood Count 4.35 10^6 /uL (4.18-5.48); Red Cell Distribution Width 14 % (10-15); White Blood Count 9.3 10^3/uL (3.5-10.8)
[2019-09-30 13:20] LABS: ALT 15 U/L (7-52); Albumin/Globulin Ratio 1.3 (1-3); Alkaline Phosphatase 70 U/L (34-104); BUN/Creatinine Ratio 21.9 (8-20); Blood Urea Nitrogen 21 mg/dL (6-24); CO2 Carbon Dioxide 23 mmol/L (22-32); Calcium 9.3 mg/dL (8.6-10.3); Chloride 103 mmol/L (101-111); EGFR African American 97.3 (>60); EGFR Non-African American 80.5 (>60); Globulin 3.1 g/dL (2-4); Glucose 150 mg/dL (70-100); Sodium 133 mmol/L (135-145); Total Protein 7.1 g/dL (6.4-8.9)
[2019-09-30 13:22] LABS: Anion Gap 7 mmol/L (2-11)
[2019-09-30] MEDS: Atorvastatin* 20 MG TAB PO SCH (20:30)
[2019-10-01] MEDS: NS 0.9% 1000 ML** 1,000 ML IV SCH ×2 (06:04→17:07)
[2019-10-01] MEDS: SPIRIVA Respimat* (tiotropium) 2.5 mcg/inh Inhaler INH SCH (07:52)
[2019-10-01] MEDS: Mometasone/Formoter 200/5 MDI INH SCH ×2 (07:52→20:38)
[2019-10-01] MEDS: Insulin LISPRO* 1 UNITS UNIT SUBCUT SCH ×4 (08:37→20:47)
[2019-10-01] MEDS: Pantoprazole TAB * 40 MG TAB PO SCH ×2 (08:50→21:17)
[2019-10-01] MEDS: Sertraline* 50 MG TAB PO SCH (08:51)
[2019-10-01] MEDS: Gabapentin CAP(*) 300 MG PO SCH ×4 (08:51→21:16)
[2019-10-01] MEDS: oxyCODONE TAB* 5 MG TAB PO PRN ×3 (08:51→21:14)
[2019-10-01] MEDS: Lisinopril TAB* 10 MG PO SCH (08:51)
[2019-10-01] MEDS ORDERED: ceFAZolin 2 GM PREMIX in ORs 2 GM/50 ML BAG IVPB ONE (11:25)
--- NOTE | 2019-10-01 13:15 | PN ---
Subjective Date of Service: 10/01/19 Interval History: Patient is feeling well. Patient feels intermittently SOB and has chest pain with deep breathing. Patient denies any dizziness, CP, SOB, N/V, abdominal pain , dysuria, or other abnormal pain. Family History: Unchanged from Admission Social History: Unchanged from Admission Past Medical History: Unchanged from Admission Objective Active Medications: Acetaminophen (Tylenol Tab*) 650 mg PO Q6H PRN PRN Reason: MILD PAIN or TEMP > 100.4 Last Admin: 09/29/19 23:02 Dose: 650 mg Albuterol (Ventolin Hfa Inhaler*) 2 puff INH Q4H PRN PRN Reason: SOB/WHEEZING Albuterol/Ipratropium (Duoneb (Albuterol 2.5 Mg/Ipratropium 0.5 Mg)) 1 neb INH Q4H PRN PRN Reason: SOB/WHEEZING Atorvastatin Calcium (Lipitor*) 20 mg PO BEDTIME [facility] Last Admin: 09/30/19 20:30 Dose: 20 mg Cetirizine HCl (Zyrtec*) 10 mg PO DAILY PRN PRN Reason: CONGESTION Last Admin: 09/30/19 11:15 Dose: 10 mg Dextrose (Dextrose 50% Vial 50 Ml*) 25 ml IV PUSH .FOR FS < 60 - SS PRN PRN Reason: FS < 60 Docusate Sodium (Colace Cap*) 100 mg PO DAILY PRN PRN Reason: CONSTIPATION Gabapentin (Neurontin Cap(*)) 600 mg PO QID [facility] Last Admin: 10/01/19 08:51 Dose: 600 mg Sodium Chloride (Ns 0.9% 1000 Ml) 1,000 mls @ 75 mls/hr IV PER RATE [facility] Last Admin: 10/01/19 06:04 Dose: 75 mls/hr Insulin Human Lispro (Humalog*) 0 units SUBCUT ACHS [facility]; Protocol Last Admin: 10/01/19 11:55 Dose: Not Given Lisinopril (Prinivil Tab*) 10 mg PO DAILY [facility] Last Admin: 10/01/19 08:51 Dose: 10 mg Mometasone Furoate/Formoterol Fumar (Dulera 200/5 Mdi*) 2 puff INH 0900,2100 [facility] Last Admin: 10/01/19 07:52 Dose: 2 puff Ondansetron HCl (Zofran Inj*) 4 mg IV Q6H PRN PRN Reason: NAUSEA Oxycodone HCl (Roxycodone Tab*) 15 mg PO Q4H PRN PRN Reason: PAIN - MILD Last Admin: 10/01/19 08:51 Dose: 15 mg Pantoprazole Sodium (Protonix Tab*) 40 mg PO BID [facility] Last Admin: 10/01/19 08:50 Dose: 40 mg Sertraline HCl (Zoloft*) [facility] Last Admin: 10/01/19 08:51 Dose: 50 mg Tiotropium [place] (Spiriva Respimat 2.5 Mcg) 2 puff [facility] Last Admin: 10/01/19 07:52 Dose: 2 puff Vital Signs - 8 hr 10/01/19 10/01/19 10/01/19 06:00 07:00 07:01 Temperature Pulse Rate 75 73 72 Respiratory 19 16 22 Rate Blood Pressure 111/77 106/70 (mmHg) O2 Sat by Pulse 95 93 94 Oximetry 10/01/19 10/01/19 10/01/19 07:43 07:53 08:00 Temperature 98.5 F Pulse Rate 69 67 Respiratory 16 20 Rate Blood Pressure (mmHg) O2 Sat by Pulse 97 92 Oximetry 10/01/19 10/01/19 10/01/19 08:03 09:00 10:00 Temperature Pulse Rate 75 83 88 Respiratory 26 16 23 Rate Blood Pressure 111/78 117/90 112/94 (mmHg) O2 Sat by Pulse 94 94 96 Oximetry 10/01/19 10/01/19 10/01/19 10:55 11:00 11:07 Temperature 98.8 F Pulse Rate 79 80 Respiratory 18 24 15 Rate Blood Pressure 126/64 (mmHg) O2 Sat by Pulse 93 93 Oximetry 10/01/19 10/01/19 10/01/19 11:24 12:00 12:01 Temperature 98.0 F Pulse Rate 72 72 Respiratory 16 19 Rate Blood Pressure 114/75 (mmHg) O2 Sat by Pulse 95 94 Oximetry 10/01/19 10/01/19 10/01/19 12:57 13:00 13:02 Temperature Pulse Rate 77 76 Respiratory 20 21 Rate Blood Pressure 136/98 (mmHg) O2 Sat by Pulse 94 97 Oximetry Oxygen Devices in Use Now: Nasal Cannula Appearance: Patient is a 59yo male who appears stated age and is sitting in the bed in NAD. Eyes: No Scleral Icterus, PERRLA Ears/Nose/Mouth/Throat: NL Teeth, Lips, Gums, Clear Oropharnyx, Mucous Membranes Moist Neck: NL Appearance and Movements; NL JVP, Trachea Midline Respiratory: Symmetrical Chest Expansion and Respiratory Effort, - - Rales in LLL. Slight Expiratory wheezing, no other adventitious lung sounds. Cardiovascular: NL Sounds; No Murmurs; No JVD, RRR, No Edema Abdominal: NL Sounds; No Tenderness; No Distention, No Hepatosplenomegaly Lymphatic: No Cervical Adenopathy Extremities: No Edema, No Clubbing, Cyanosis Skin: No Rash or Ulcers, No Nodules or Sclerosis Neurological: Alert and Oriented x 3, NL Sensation, NL Muscle Strength and Tone , - - CN II-XII intact. Result Diagrams: 09/30/19 12:30 09/30/19 12:30 Microbiology and Other Data: Microbiology 09/29/19 10:35 Aerobic Blood Culture - Preliminary Blood Venous No Growth Day 2 Anaerobic Blood Culture - Preliminary No Growth Day 2 09/29/19 11:09 Gram Stain - Final Sputum Sputum Culture - Final Normal Suzi 09/29/19 00:00 Legionella Urinary Antigen - Final Urine Negative Legionella Antigen 09/28/19 21:32 Nasal Screen MRSA (PCR) - Final Nasal Mrsa Detected Assess/Plan/Problems-Billing Assessment: 59 M with PMH of HTN, HLD, Anxiety, Childhood epilepsy and essential tremor presented after 2 episodes of seizure-like activity followed by episodic bradycardia and asystole. Had episodic symptomatic asystole in ED with spontaneous return of circulation; received 0.5 mg atropin. Thought to be medication induced(metoprolol). Received dopamine drip(weaned off). Going to get a pacemaker today, - Patient Problems (1) Bradycardia Current Visit: Yes Status: Acute Code(s): R00.1 - BRADYCARDIA, UNSPECIFIED SNOMED Code(s): 36701839 Comment: - Symptomatic with decreased responsiveness and dizziness - Seizure like activity likely from cerebral hypoperfusion. Check EEG for possible Seizures - Metoprolol likely contributing - ? ACS, but negative trops. Needs ischemic eval at some point -Echo-EF of 60-70%; no RWMA but hypopkinesis cannot be excluded - May also have some inherited channelopathy - Cardio following, appreciate input, Pacer today - Weaned off dopamine drip; on pacer pads - To Floor after Pacer (2) Hypoxia Current Visit: Yes Status: Acute Code(s): R09.02 - HYPOXEMIA SNOMED Code(s ): 389844431 Comment: - Unclear cause. - Continue Inhalers for ? Mild COPD exacerbation - Signs of Right sided strain on Echo likely from [place] and COPD - If unable to wean O2, R/O PE may be a good idea, but D-Dimer likely uninterpretable at this time due to Pacer surgery. (3) Anxiety Current Visit: Yes Status: Acute Code(s): F41.9 - ANXIETY DISORDER, UNSPECIFIED SNOMED Code(s): 17450131 Comment: - Continue sertaline - Somewhat anxious today, restart Alprazolam after Pacer (4) COPD (chronic obstructive pulmonary disease) Current Visit: Yes Status: Acute Code(s): J44.9 - CHRONIC OBSTRUCTIVE PULMONARY DISEASE, UNSPECIFIED SNOMED Code(s): 50257738 Comment: - Continue albuterol, dulera and spiriva inhaler - Continue PRN Nebs - Smoker; uses 1 PPD (5) Chronic back pain Current Visit: Yes Status: Acute Code(s): M54.9 - DORSALGIA, UNSPECIFIED; G89.29 - OTHER CHRONIC PAIN SNOMED Code(s): 609044800 Comment: -on gabapentin and oxycodone (6) Epilepsy Current Visit: Yes Status: Acute Code(s): G40.909 - EPILEPSY, UNSP, NOT INTRACTABLE, WITHOUT STATUS EPILEPTICUS SNOMED Code(s): 57141468 Comment: - Childhood epilepsy; last seizure more than 40 years ago. - Not on any medication - CT head normal - This episode could be hypoxic seizure. - Appreciate neuro recs - EEG (7) Essential tremor Current Visit: Yes Status: Acute Code(s): G25.0 - ESSENTIAL TREMOR SNOMED Code(s): 487420735 Comment: - Hold Metoprolol - Follow up Neurologist (8) HLD (hyperlipidemia) Current Visit: Yes Status: Acute Code(s): E78.5 - HYPERLIPIDEMIA, UNSPECIFIED SNOMED Code(s): 63805963 Comment: - Continue atorvastatin (9) Tobacco use disorder Current Visit: Yes Status: Acute Code(s): F17.200 - NICOTINE DEPENDENCE, UNSPECIFIED, UNCOMPLICATED SNOMED Code(s): 923549803 Comment: - Nicotine replacement may aid anxiety (10) DVT prophylaxis Current Visit: Yes Status: Acute Code(s): Z29.9 - ENCOUNTER FOR PROPHYLACTIC MEASURES, UNSPECIFIED SNOMED Code(s): 963348655 Comment: - Hold Lovenox for Pacer (11) Full code status Current Visit: Yes Status: Acute Code(s): Z78.9 - OTHER SPECIFIED HEALTH STATUS SNOMED Code(s): 707727720 Status and Disposition: Transfer to after Pacer.
[2019-10-01] MEDS ORDERED: Nicotine* 2MG (FRUIT FLAVOR) GUM PO PRN (13:29)
[2019-10-01] MEDS ORDERED: Diazepam TAB(*) 5 MG ONE (13:45)
[2019-10-01] MEDS ORDERED: Lidocaine 1% INJ* 10 MG/ML 30 ML SDV ONE (13:48)
[2019-10-01] MEDS ORDERED: Iohexol 300* (CONTRAST) 10 ML SDV ONE (13:51)
[2019-10-01] MEDS ORDERED: Midazolam* 1 MG/ML 5 ML VIAL (5 MG) ONE (14:23)
[2019-10-01] MEDS ORDERED: fentaNYL* 50 MCG/ML 2 ML VIAL (100 MCG VIAL) ONE (14:23)
[2019-10-01] MEDS ORDERED: Diazepam TAB(*) 5 MG PO ONE (14:30)
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
[2019-10-01] MEDS ORDERED: Metoprolol Tartrate IV* 1 MG/ML 5 ML VIAL ONE (14:58)
[2019-10-01] MEDS: Nicotine PATCH 21 MG/24 HR* PATCH TRANSDERM SCH (17:17)
[2019-10-01] MEDS: ceFAZolin 1 GM ADVAN(*) 1 GM in NS 0.9% 50 ML* 50 ML IVPB SCH (19:34)
[2019-10-01] MEDS: Metoprolol Tartrate TAB* 25 MG PO SCH (21:14)
[2019-10-01] MEDS: Atorvastatin* 20 MG TAB PO SCH (21:15)
[2019-10-01] MEDS: Nicotine Patch Removal NOTE FOLLOW UP SCH (21:17)
[2019-10-02] MEDS: oxyCODONE TAB* 5 MG TAB PO PRN ×6 (01:25→22:23)
[2019-10-02] MEDS: ceFAZolin 1 GM ADVAN(*) 1 GM in NS 0.9% 50 ML* 50 ML IVPB SCH ×2 (03:30→11:50)
--- NOTE | 2019-10-02 03:38 | EEG ---
CC: RADHA Kapoor ELECTROENCEPHALOGRAM REPORT: DATE OF STUDY: 10/01/19 LOCATION: He is an Inpatient in ICU Bed 4. REFERRING PROVIDER: RADHA Kapoor CLINICAL PROBLEM: Episodes of unconsciousness, history of seizures as a child. MEDICATIONS: Include: 1. Oxycodone. 2. Zofran. 3. Ventolin. 4. Lipitor. 5. Sertraline. 6. Protonix. 7. Prinivil. 8. Gabapentin. 9. Humalog insulin. REPORT: This 19-channel EEG is remarkable for background rhythms consisting of a well-formed alpha-r hythm in the occipital derivations at 8 to 8-1/2 cycles per second, which are symmetric. Moderate vo ltage bifrontal beta rhythms are noted and are symmetric. The patient drowses and falls asleep with vertex slowing and some sleep spindles seen parasagittally. Activation procedures are not attempted. There are clinical events. There are no focal, lateralized, or epileptiform abnormalities. CLINICAL IMPRESSION: Normal awake and asleep EEG. [id number]/[facility] #: [id number]
--- NOTE | 2019-10-02 04:59 | PRO ---
CC: Primary Care Physician; Dr. Shaffer * PACEMAKER IMPLANTATION: DATE OF PROCEDURE: 10/01/19 - ROOM #431 SURGEON: Kailey Smith MD PRE-PROCEDURE DIAGNOSIS: Sick sinus syndrome with syncope. POST-PROCEDURE DIAGNOSIS: Sick sinus syndrome with syncope. ESTIMATED BLOOD LOSS: Less than 5 cc. COMPLICATIONS: None. The patient is right-handed, the left subclavian fossa was prepped and draped in the usual sterile fashion. He had a plate in the clavicle and we injected 10 cc of radiopaque dye in the left upper extremity to verify position and patency of the vein. Following this, the left subclavian fossa was prepped and draped in the usual sterile fashion and a time-out was called. The patient received a total of 4 mg of Versed, 25 mcg of fentanyl as well as 1% lidocaine with local anesthesia throughout the procedure. Following local anesthesia, a 2.5 cm incision was made in the left subclavian fossa using Bovie and blunt dissection with extended level at the pectoralis muscle. Additional lidocaine was infused inferiorly and medially and using blunt dissection a pocket was fashioned. Using modified Seldinger technique, the left subclavian vein was cannulated and using fluoroscopic guidance, the guidewire was extended into the left atrium. Unable to get a second stick, therefore we placed the introducer over the guidewire, placed the second guidewire and then replaced the initial introducer and using fluoroscopic guidance, guided the right ventricular lead in to the right ventricular apex, actively fixed in place. Pacing and sensing thresholds were good. Using the second guidewire and the second introducer, the right atrial lead was placed in the right atrial appendage, actively fixed in place. Pacing and sensing thresholds were initially elevated but improved with time. The leads were sutured to the pocket using 0-silk suture taking care to position with extra lead for breathing and position changes. The pocket was copiously irrigated with normal saline. Following this, leads were attached to the generator. The generator was placed in the pocket and the incision was closed with 2 layers of absorbable sutures, 2-0 followed by 4-0, followed by gianni and external dressings. FINDINGS: The device is an MRI compatible system, [email or web address]. The device is a [employer] Edora 8 DR-T reference number 557114, serial number [id number]. The atrial lead is a [employer] Solia S 53, reference 246370, serial number [id number]. The ventricular lead is a [employer] Solia S 60, reference [id number], serial number [id number]. FINDINGS: T waves are sensed at 4.51 millivolts with an atrial lead impedance of 426 ohm, and atrial pacing threshold of 1 volt at 0.4 milliseconds. The ventricular leads senses R-waves of 4.5 millivolts with a ventricular lead impedance of 643 ohm and a ventricular pacing threshold of 0.75 volts at 0.4 milliseconds. The patient was hemodynamically stable throughout the procedure and during the recovery period no complications. He did need to use the urinal during the procedure as an incidental comment. [id number]/[facility] #: [id number] MTDD
[2019-10-02] MEDS: NS 0.9% 1000 ML** 1,000 ML IV SCH (05:07)
[2019-10-02] MEDS: Insulin LISPRO* 1 UNITS UNIT SUBCUT SCH ×4 (07:30→22:26)
[2019-10-02] MEDS: SPIRIVA Respimat* (tiotropium) 2.5 mcg/inh Inhaler INH SCH (07:35)
[2019-10-02] MEDS: Mometasone/Formoter 200/5 MDI INH SCH ×2 (07:37→19:47)
[2019-10-02] MEDS: Pantoprazole TAB * 40 MG TAB PO SCH ×2 (08:59→22:23)
[2019-10-02] MEDS: Metoprolol Tartrate TAB* 25 MG PO SCH ×2 (08:59→22:25)
[2019-10-02] MEDS: Sertraline* 50 MG TAB PO SCH (08:59)
[2019-10-02] MEDS: Lisinopril TAB* 10 MG PO SCH (08:59)
[2019-10-02] MEDS: Gabapentin CAP(*) 300 MG PO SCH ×4 (08:59→22:24)
[2019-10-02] MEDS: Nicotine PATCH 21 MG/24 HR* PATCH TRANSDERM SCH (09:08)
--- NOTE | 2019-10-02 12:24 | PN ---
Subjective Date of Service: 10/02/19 Interval History: Mr. Tovar states he is feeling well today. He feels his breathing is back to baseline, and in fact improved due to smoking cessation since Monday. He denies SOB and is currently not on supplemental O2. He does c/o cough and wheeze intermittently. He c/o mild pain at PPM insertion site rated at 3/10. No other complaints today. Family History: Unchanged from Admission Social History: Unchanged from Admission Past Medical History: Unchanged from Admission Objective Active Medications: Acetaminophen (Tylenol Tab*) 650 mg PO Q6H PRN PRN Reason: MILD PAIN or TEMP > 100.4 Last Admin: 09/29/19 23:02 Dose: 650 mg Albuterol (Ventolin Hfa Inhaler*) 2 puff INH Q4H PRN PRN Reason: SOB/WHEEZING Albuterol/Ipratropium (Duoneb (Albuterol 2.5 Mg/Ipratropium 0.5 Mg)) 1 neb INH Q4H PRN PRN Reason: SOB/WHEEZING Alprazolam (Xanax Tab*) 0.5 mg PO TID PRN PRN Reason: ANXIETY Atorvastatin Calcium (Lipitor*) 20 mg PO BEDTIME [facility] Last Admin: 10/01/19 21:15 Dose: 20 mg Cetirizine HCl (Zyrtec*) 10 mg PO DAILY PRN PRN Reason: CONGESTION Last Admin: 09/30/19 11:15 Dose: 10 mg Dextrose (Dextrose 50% Vial 50 Ml*) 25 ml IV PUSH .FOR FS < 60 - SS PRN PRN Reason: FS < 60 Docusate Sodium (Colace Cap*) 100 mg PO DAILY PRN PRN Reason: CONSTIPATION Gabapentin (Neurontin Cap(*)) 600 mg PO QID [facility] Last Admin: 10/02/19 08:59 Dose: 600 mg Sodium Chloride (Ns 0.9% 1000 Ml) 1,000 mls @ 75 mls/hr IV PER RATE [facility] Last Admin: 10/02/19 05:07 Dose: 75 mls/hr Insulin Human Lispro (Humalog*) 0 units SUBCUT ACHS [facility]; Protocol Last Admin: 10/02/19 11:49 Dose: Not Given Lisinopril (Prinivil Tab*) 10 mg PO DAILY [facility] Last Admin: 10/02/19 08:59 Dose: 10 mg Metoprolol Tartrate (Lopressor Tab*) 25 mg PO BID [facility] Last Admin: 10/02/19 08:59 Dose: 25 mg Mometasone Furoate/Formoterol Fumar (Dulera 200/5 Mdi*) 2 puff INH 0900,2099 [facility] Last Admin: 10/02/19 07:37 Dose: 2 puff Nicotine (Nicotine Patch 21 Mg/24 Hr*) 1 patch TRANSDERM DAILY [facility] Last Admin: 10/02/19 09:08 Dose: Not Given Nicotine Polacrilex (Nicotine Gum*) 2 mg PO Q2H PRN PRN Reason: CRAVING Ondansetron HCl (Zofran Inj*) 4 mg IV Q6H PRN PRN Reason: NAUSEA Oxycodone HCl (Roxycodone Tab*) 15 mg PO Q4H PRN PRN Reason: PAIN - MILD Last Admin: 10/02/19 08:59 Dose: 15 mg Pantoprazole Sodium (Protonix Tab*) 40 mg PO BID [facility] Last Admin: 10/02/19 08:59 Dose: 40 mg Pharmacy Profile Note (Nicotine Patch Removal Note*) 1 note FOLLOW UP 2099 [facility] Last Admin: 10/01/19 21:17 Dose: Not Given Sertraline HCl (Zoloft*) 50 mg PO QAM [facility] Last Admin: 10/02/19 08:59 Dose: 50 mg Tiotropium Alta (Spiriva Respimat 2.5 Mcg) 2 puff INH QAM [facility] Last Admin: 10/02/19 07:35 Dose: 2 puff Vital Signs: Temp Pulse Resp BP Pulse Ox 97 F 66 20 150/84 95 10/02/19 12:00 10/02/19 12:00 10/02/19 12:12 10/02/19 12:00 10/02/19 12:00 Oxygen Devices in Use Now: Nasal Cannula Appearance: Mr. Tovar is an overweight middle-aged white male who is sitting up in bed. Breathing comfortably, in no acute distress. Eyes: No Scleral Icterus, PERRLA Ears/Nose/Mouth/Throat: NL Teeth, Lips, Gums, Clear Oropharnyx, Mucous Membranes Moist Neck: NL Appearance and Movements; NL JVP, Trachea Midline Respiratory: Symmetrical Chest Expansion and Respiratory Effort, Clear to Auscultation Cardiovascular: NL Sounds; No Murmurs; No JVD, RRR, No Edema, - - PPM insertion site with CDI dressing in place; no surrounding erythema or drainage from site. Abdominal: NL Sounds; No Tenderness; No Distention, No Hepatosplenomegaly Extremities: No Edema, No Clubbing, Cyanosis Neurological: Alert and Oriented x 3 Result Diagrams: 09/30/19 12:30 09/30/19 12:30 Microbiology and Other Data: Microbiology 09/29/19 10:35 Aerobic Blood Culture - Preliminary Blood Venous No Growth Day 2 Anaerobic Blood Culture - Preliminary No Growth Day 2 09/29/19 11:09 Gram Stain - Final Sputum Sputum Culture - Final Normal Suzi 09/29/19 00:00 Legionella Urinary Antigen - Final Urine Negative Legionella Antigen 09/28/19 21:32 Nasal Screen MRSA (PCR) - Final Nasal Mrsa Detected Assess/Plan/Problems-Billing Assessment: 59 M with PMH of HTN, HLD, Anxiety, Childhood epilepsy and essential tremor presented after 2 episodes of seizure-like activity followed by episodic bradycardia and asystole. Had episodic symptomatic asystole in ED with spontaneous return of circulation; received 0.5 mg atropine. Thought to be medication induced (metoprolol). Received dopamine drip (weaned off). Now s/p PPM insertion 10/01. - Patient Problems (1) Bradycardia Comment: -symptomatic with decreased responsiveness and dizziness -seizure like activity likely from cerebral hypoperfusion; EEG WNL -metoprolol likely contributing; dose adjusted -? ACS, but negative trops; stress test in a.m. -Echo-EF of 60-70%; no RWMA but hypopkinesis cannot be excluded -may also have some inherited channelopathy -cardio following, appreciate input -weaned off dopamine drip -s/p PPM placement 10/01 (2) Hypoxia Comment: -unclear cause -continue inhalers for ? Mild COPD exacerbation -signs of Right sided strain on Echo likely from [place] and COPD -currently off supplemental O2 at rest; check ambulatory sats (3) Epilepsy Comment: -presented with reports of seizure-like activity and LOC -h/o childhood epilepsy; last seizure more than 40 years ago -not on any medication -CT head normal -appreciate neuro recs -this episode could be hypoxic seizure -EEG WNL (4) COPD (chronic obstructive pulmonary disease) Comment: -does not appear to be in exacerbation -continue albuterol, dulera and spiriva inhaler -continue PRN Nebs -smoker; uses 1 PPD (5) Anxiety Comment: -continue sertaline -anxiety appears controlled today -restart alprazolam (6) HLD (hyperlipidemia) Comment: -continue atorvastatin (7) Chronic back pain Comment: -continue gabapentin and oxycodone (8) Essential tremor Comment: -follow up with neurologist (9) Tobacco use disorder Comment: -continue nicotine patch, gum (10) DVT prophylaxis Comment: -SCDs (11) Full code status Status and Disposition: Inpatient. Plan for stress test in a.m. Likely d/c after test.
[2019-10-02] MEDS: Atorvastatin* 20 MG TAB PO SCH (22:23)
[2019-10-02] MEDS: Nicotine Patch Removal NOTE FOLLOW UP SCH (22:34)
[2019-10-03] MEDS: oxyCODONE TAB* 5 MG TAB PO PRN ×3 (03:01→20:27)
[2019-10-03] MEDS: Insulin LISPRO* 1 UNITS UNIT SUBCUT SCH ×4 (07:33→21:07)
[2019-10-03] MEDS: SPIRIVA Respimat* (tiotropium) 2.5 mcg/inh Inhaler INH SCH (08:18)
[2019-10-03] MEDS: Mometasone/Formoter 200/5 MDI INH SCH ×2 (08:19→19:32)
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
[2019-10-03 09:11] LABS: ABS Basophils 0.1 10^3/ul (0-0.2); ABS Eosinophils 0.3 10^3/ul (0-0.6); ABS Lymphocytes 1.9 10^3/ul (1.0-4.8); ABS Neutrophils 5.7 10^3/ul (1.5-7.7); Eosinophil % 3.2 %; Hematocrit 38 % (42-52); Hemoglobin 12.9 g/dL (14.0-18.0); Lymphocyte % 21.1 %; Mean Corpuscular HGB Conc 34 g/dL (31-36); Mean Corpuscular Hemoglobin 31 pg (27-31); Mean Corpuscular Volume 91 fL (80-94); Mean Platelet Volume 6.6 fL (7.4-10.4); Nucleated Red Blood Cells % 0.1; Platelet Count 352 10^3/uL (150-450); Red Blood Count 4.18 10^6 /uL (4.18-5.48); Red Cell Distribution Width 14 % (10-15)
[2019-10-03 09:27] LABS: BUN/Creatinine Ratio 25.3 (8-20); CRP High Sensitivity 41.07 mg/L (<2.00); Calcium 9.4 mg/dL (8.6-10.3); EGFR African American 98.5 (>60); EGFR Non-African American 81.4 (>60)
[2019-10-03] MEDS ORDERED: Cephalexin CAP* 250 MG PO SCH ×2 (10:00→13:00)
[2019-10-03] MEDS ORDERED: ceFAZolin 1 GM in Dextrose (*) 1 GM/50 ML BAG IVPB ONE (10:05)
[2019-10-03 10:27] LABS: Erythrocyte Sed Rate 38 mm/Hr (0-19)
[2019-10-03] MEDS: Sertraline* 50 MG TAB PO SCH (10:55)
[2019-10-03] MEDS: Pantoprazole TAB * 40 MG TAB PO SCH ×2 (10:55→21:30)
[2019-10-03] MEDS: Gabapentin CAP(*) 300 MG PO SCH ×4 (10:56→21:31)
[2019-10-03] MEDS: Acetaminophen TAB* 325 MG PO PRN (10:57)
[2019-10-03] MEDS: ALPRAZolam TAB* 0.5 MG PO PRN (10:57)
[2019-10-03] MEDS: Nicotine PATCH 21 MG/24 HR* PATCH TRANSDERM SCH (10:58)
[2019-10-03] MEDS ORDERED: Regadenoson* 0.4 MG/5 ML SYRINGE ONE (11:35)
[2019-10-03] MEDS: Lisinopril TAB* 10 MG PO SCH (14:11)
[2019-10-03] MEDS: Metoprolol Tartrate TAB* 25 MG PO SCH ×2 (14:11→21:31)
--- NOTE | 2019-10-03 17:14 | PN ---
Subjective Date of Service: 10/03/19 Interval History: Mr. Tovar states he has occasional dizziness. He states he was cold overnight , but denies chills, sweats, fever. He continues to have 3/10 PPM site pain with palpation only. He noticed he developed an area of erythema around the site last night, which has not worsened or improved. He has no other complaints today. Family History: Unchanged from Admission Social History: Unchanged from Admission Past Medical History: Unchanged from Admission Objective Active Medications: Acetaminophen (Tylenol Tab*) 650 mg PO Q6H PRN PRN Reason: MILD PAIN or TEMP > 100.4 Last Admin: 10/03/19 10:57 Dose: 650 mg Albuterol (Ventolin Hfa Inhaler*) 2 puff INH Q4H PRN PRN Reason: SOB/WHEEZING Albuterol/Ipratropium (Duoneb (Albuterol 2.5 Mg/Ipratropium 0.5 Mg)) 1 neb INH Q4H PRN PRN Reason: SOB/WHEEZING Alprazolam (Xanax Tab*) 0.5 mg PO TID PRN PRN Reason: ANXIETY Last Admin: 10/03/19 10:57 Dose: 0.5 mg Atorvastatin Calcium (Lipitor*) 20 mg PO BEDTIME [facility] Last Admin: 10/02/19 22:23 Dose: 20 mg Cephalexin HCl (Keflex Cap*) 500 mg PO Q6HR [facility] Stop: 10/08/19 12:01 Cetirizine HCl (Zyrtec*) 10 mg PO DAILY PRN PRN Reason: CONGESTION Last Admin: 09/30/19 11:15 Dose: 10 mg Dextrose (Dextrose 50% Vial 50 Ml*) 25 ml IV PUSH .FOR FS < 60 - SS PRN PRN Reason: FS < 60 Docusate Sodium (Colace Cap*) 100 mg PO DAILY PRN PRN Reason: CONSTIPATION Last Admin: 10/02/19 22:25 Dose: 100 mg Gabapentin (Neurontin Cap(*)) 600 mg PO QID [facility] Last Admin: 10/03/19 14:11 Dose: 600 mg Insulin Human Lispro (Humalog*) 0 units SUBCUT [facility]; Protocol Last Admin: 10/03/19 11:39 Dose: Not Given Lisinopril (Prinivil Tab*) 10 mg PO DAILY [facility] Last Admin: 10/03/19 14:11 Dose: 10 mg Metoprolol Tartrate (Lopressor Tab*) 25 mg PO BID [facility] Last Admin: 10/03/19 14:11 Dose: 25 mg Mometasone Furoate/Formoterol Fumar (Dulera 200/5 Mdi*) 2 puff INH 0900,2100 [facility] Last Admin: 10/03/19 08:19 Dose: 2 puff Nicotine (Nicotine Patch 21 Mg/24 Hr*) 1 patch TRANSDERM DAILY [facility] Last Admin: 10/03/19 10:58 Dose: Not Given Nicotine Polacrilex (Nicotine Gum*) 2 mg PO Q2H PRN PRN Reason: CRAVING Ondansetron HCl (Zofran Inj*) 4 mg IV Q6H PRN PRN Reason: NAUSEA Oxycodone HCl (Roxycodone Tab*) 15 mg PO Q4H PRN PRN Reason: PAIN - MILD Last Admin: 10/03/19 14:46 Dose: 15 mg Pantoprazole Sodium (Protonix Tab*) 40 mg PO BID [facility] Last Admin: 10/03/19 10:55 Dose: 40 mg Pharmacy Profile Note (Nicotine Patch Removal Note*) 1 note FOLLOW UP 2099 [facility] Last Admin: 10/02/19 22:34 Dose: Not Given Sertraline HCl (Zoloft*) 50 mg PO QAM [facility] Last Admin: 10/03/19 10:55 Dose: 50 mg Tiotropium [place] (Spiriva Respimat 2.5 Mcg) 2 puff INH QAM [facility] Last Admin: 10/03/19 08:18 Dose: 2 puff Vital Signs: Temp Pulse Resp BP Pulse Ox 97.3 F 72 17 133/91 97 10/03/19 15:14 10/03/19 15:14 10/03/19 15:14 10/03/19 15:14 10/03/19 15:14 Oxygen Devices in Use Now: None Appearance: Mr. Tovar is a middle-aged white male who is laying in bed. He is somewhat anxious-appearing, but in no acute distress. Eyes: No Scleral Icterus, PERRLA Ears/Nose/Mouth/Throat: NL Teeth, Lips, Gums, Clear Oropharnyx, Mucous Membranes Moist Neck: NL Appearance and Movements; NL JVP, Trachea Midline Respiratory: Symmetrical Chest Expansion and Respiratory Effort, Clear to Auscultation Cardiovascular: NL Sounds; No Murmurs; No JVD, RRR, No Edema, - - PPM surgical site without drainage; there is an area of erythema lateral to surgical site that is warm and tender to the palpation; there is no drainage or fluctuance; there has been no change in size from when it was demarcated Abdominal: NL Sounds; No Tenderness; No Distention, No Hepatosplenomegaly Extremities: No Edema, No Clubbing, Cyanosis Neurological: Alert and Oriented x 3 Result Diagrams: 10/03/19 09:02 10/03/19 09:02 Microbiology and Other Data: Microbiology 09/29/19 10:35 Aerobic Blood Culture - Preliminary Blood Venous No Growth Day 2 Anaerobic Blood Culture - Preliminary No Growth Day 2 09/29/19 11:09 Gram Stain - Final Sputum Sputum Culture - Final Normal Suzi 09/29/19 00:00 Legionella Urinary Antigen - Final Urine Negative Legionella Antigen 09/28/19 21:32 Nasal Screen MRSA (PCR) - Final Nasal Mrsa Detected Assess/Plan/Problems-Billing Assessment: 59 M with PMH of HTN, HLD, Anxiety, Childhood epilepsy and essential tremor presented after 2 episodes of seizure-like activity followed by episodic bradycardia and asystole. Had episodic symptomatic asystole in ED with spontaneous return of circulation; received 0.5 mg atropine. Thought to be medication induced (metoprolol). Received dopamine drip (weaned off). Now s/p PPM insertion 10/01. - Patient Problems (1) Bradycardia Comment: -symptomatic with decreased responsiveness and dizziness -seizure like activity likely from cerebral hypoperfusion; EEG WNL -metoprolol likely contributing; dose adjusted -troponins negative; EKG ST no evidence of ischemia -Echo-EF of 60-70%; no RWMA but hypopkinesis cannot be excluded -may also have some inherited channelopathy -cardio following, appreciate input -weaned off dopamine drip -s/p PPM placement 10/01 (2) Erythema Comment: -area of erythema, warmth, tenderness, without drainage of fluctuance lateral to PPM insertion site -received cefazolin IV x3d; will transition to cephalexin -ID to see patient in a.m. (3) Hypoxia Comment: -resolved -unclear cause -continue inhalers for ? Mild COPD exacerbation -signs of Right sided strain on Echo likely from MINA and COPD -no supplemental O2 required (4) Epilepsy Comment: -presented with reports of seizure-like activity and LOC -h/o childhood epilepsy; last seizure more than 40 years ago -not on any medication -CT head normal -appreciate neuro recs -this episode could be hypoxic seizure -EEG WNL (5) COPD (chronic obstructive pulmonary disease) Comment: -does not appear to be in exacerbation -continue albuterol, dulera and spiriva inhaler -continue PRN Nebs -smoker; uses 1 PPD (6) Anxiety Comment: -continue sertaline -anxiety appears controlled today -restart alprazolam (7) HLD (hyperlipidemia) Comment: -continue atorvastatin (8) Chronic back pain Comment: -continue gabapentin and oxycodone (9) Essential tremor Comment: -follow up with neurologist (10) Tobacco use disorder Comment: -continue nicotine patch, gum (11) DVT prophylaxis Comment: -SCDs (12) Full code status Status and Disposition: Inpatient. Plan for stress test in a.m. Likely d/c after test.
[2019-10-03] MEDS: Cephalexin CAP* 500 MG PO SCH (17:27)
[2019-10-03] MEDS: Nicotine Patch Removal NOTE FOLLOW UP SCH (21:28)
[2019-10-03] MEDS: Atorvastatin* 20 MG TAB PO SCH (21:30)
[2019-10-04] MEDS: Cephalexin CAP* 500 MG PO SCH ×3 (00:12→12:15)
[2019-10-04] MEDS: oxyCODONE TAB* 5 MG TAB PO PRN ×2 (06:58→12:23)
[2019-10-04] MEDS: Insulin LISPRO* 1 UNITS UNIT SUBCUT SCH ×2 (07:38→12:15)
[2019-10-04] MEDS: Mometasone/Formoter 200/5 MDI INH SCH (08:10)
[2019-10-04] MEDS: SPIRIVA Respimat* (tiotropium) 2.5 mcg/inh Inhaler INH SCH (08:12)
[2019-10-04] MEDS: Pantoprazole TAB * 40 MG TAB PO SCH (09:34)
[2019-10-04] MEDS: Lisinopril TAB* 10 MG PO SCH (09:34)
[2019-10-04] MEDS: Gabapentin CAP(*) 300 MG PO SCH ×2 (09:34→12:15)
[2019-10-04] MEDS: Metoprolol Tartrate TAB* 25 MG PO SCH (09:35)
[2019-10-04] MEDS: Acetaminophen TAB* 325 MG PO PRN (09:35)
[2019-10-04] MEDS: Sertraline* 50 MG TAB PO SCH (09:35)
[2019-10-04] MEDS: ALPRAZolam TAB* 0.5 MG PO PRN (09:36)
[2019-10-04] MEDS: Nicotine PATCH 21 MG/24 HR* PATCH TRANSDERM SCH (09:36)
[2019-10-04 12:07] VITALS: BP 112/77
--- NOTE | 2019-10-04 13:31 | CONS ---
CONSULTATION REPORT: DATE OF CONSULT: 10/04/19 PRIMARY CARE PROVIDER: Dr. Clarence High. PROVIDER REQUESTING CONSULTATION: Teresa Seay NP CONSULTING SERVICE: Infectious Disease. PROVIDER: Tadeo Schultz NP ATTENDING PROVIDER: Dr. Mike Raymond * (dictated by TADEO SCHULTZ NP). REASON FOR CONSULT: Erythema near pacemaker site, status post pacemaker insertion. IMPRESSION: 1. Erythema and warmth near pacemaker site. This has mostly resolved overnight. Differential diagnosis includes cellulitis, pacemaker pocket infection, reaction to the dressing, or trauma to the soft tissue during the procedure. The patient has no leukocytosis. Blood cultures with no growth. His high sensitivity CRP is elevated at 41.07. He is afebrile. The discomfort he was having in the area yesterday, has mostly resolved overnight. 2. Sick sinus syndrome. Status post pacemaker insertion. The patient's Lyme serology was negative. RECOMMENDATIONS/PLAN: Recommend continuing Keflex as directed by Cardiology and keeping a close eye on this for any recurrence of erythema or drainage from the incision. He should followup with ID outpatient in 1-2 weeks. HISTORY OF PRESENT ILLNESS: Mr. Tovar is a 59-year-old male with past medical history significant for hypertension, essential tremor, COPD, chronic back pain , hyperlipidemia, anxiety, insomnia and seizures as a teenager, not currently on medications, who presented to the hospital initially back on 09/28/19 for syncopal episode. He was admitted to the hospital for syncope with sinus pauses. During his hospitalization, he underwent a nuclear stress test. On 10/01/19, he underwent insertion of a pacemaker by Dr. Smith for sick sinus syndrome with syncope. The patient had been doing well. Yesterday, 10/03/19, he was reporting left anterior device site discomfort, was noted to have warmth with erythema to the area below the surgical incision that the patient had reported had started the evening prior. He denied any fevers, chills. The discomfort was focal and reproducible with palpation. He received routine postoperative Ancef x3 doses. Lab work revealed no leukocytosis, elevated ESR of 38, high sensitivity CRP 41.07, regular CRP had been 2.70 on admission. The patient had had Lyme serologies sent at admission that was negative. The patient continues to feel well. The erythema is improving. He denies fevers, chills, muscle pain , diarrhea, constipation, urinary symptoms, recent travel. He reports chronic back pain that is at his baseline. He was started on Keflex per routine pacemaker placement yesterday. PAST MEDICAL HISTORY: 1. Hypertension. 2. Essential tremor. 3. COPD. 4. Chronic pain. 5. Hyperlipidemia. 6. Anxiety. 7. Insomnia. 8. Seizures as a teenager, not currently on medications. PAST SURGICAL HISTORY: Status post multiple back surgeries. MEDICATIONS: Home medications: 1. Omeprazole 40 mg by mouth twice daily. 2. Atorvastatin 20 mg by mouth daily. 3. Incruse Ellipta 1 puff inhalation daily. 4. Sertraline 50 mg by mouth daily. 5. Gabapentin 600 mg by mouth 4 times daily. 6. Dulera 200/5 two puffs inhalation every 4 hours. 7. Albuterol HFA inhaler 2 puffs inhalation every 4 hours as needed for shortness of breath. 8. Alprazolam 0.5 to 1 mg by mouth 3 times daily as needed for anxiety. 9. Oxycodone 15 mg by mouth every 4 hours as needed for pain. 10. Zofran 4 mg by mouth every 6 hours as needed for nausea. 11. Lisinopril 10 mg by mouth daily. 12. Sertraline 10 mg by mouth daily as needed for allergy symptoms. 13. Flexeril 10 mg by mouth 4 times daily as needed for muscle spasms. 14. Metoprolol tartrate 100 mg by mouth twice daily. 15. Ibuprofen 800 mg by mouth 4 times daily. Hospital medications: 1. Acetaminophen 650 mg by mouth every 6 hours as needed for fever or pain. 2. Albuterol 2 puffs inhalation every 4 hours as needed for shortness of breath or wheeze. 3. DuoNeb 1 neb inhalation every 4 hours as needed for shortness of breath or wheeze. 4. Alprazolam 0.5 mg by mouth 3 times daily as needed for anxiety. 5. Lipitor 20 mg by mouth at bedtime. 6. Keflex 500 mg by mouth every 6 hours. 7. Zyrtec 10 mg by mouth daily as needed for allergy symptoms. 8. Dextrose 25 mL IV push for glucose less than 60 as needed. 9. Colace 100 mg by mouth daily as needed for constipation. 10. Neurontin 600 mg by mouth 4 times daily. 11. Insulin sliding scale subcutaneous with meals and at bedtime. 12. Lisinopril 10 mg by mouth daily. 13. Metoprolol tartrate 25 mg by mouth twice daily. 14. Dulera 200/5 two puffs inhalation twice daily. 15. Nicotine 21 mg patch transdermal daily. 16. Nicorette gum 2 mg by mouth every 2 hours as needed for nicotine cravings. 17. Zofran 4 mg IV every 6 hours as needed for nausea. 18. Zofran 16 mg by mouth every 4 hours as needed for pain. 19. Pantoprazole 40 mg by mouth twice daily. 20. Sertraline 50 mg by mouth daily. 21. Spiriva Respimat 2.5 mcg 2 puffs inhalation every morning. ALLERGIES: No known drug allergies. FAMILY HISTORY: Denies family history of recurrent or resistant infections. Father passed from an [place] at age 55. Paternal aunt and uncle also with MIs at around the same age in their 50s. Sister with a history of coronary artery disease. No family history of diabetes mellitus and mother with a history of colon cancer. SOCIAL HISTORY: He rarely drinks alcohol. He smokes 1 pack a day, has smoked for the last 43 years. He had previously gone down to 2 cigarettes a day, but is back to smoking almost a pack a day. He occasionally uses marijuana. REVIEW OF SYSTEMS: I performed a 10-point review of systems. All the pertinent positives and negatives are mentioned in the history of present illness. The remaining review of systems are negative. PHYSICAL EXAM: Vital Signs: Temperature 97.5, heart rate 86, respiratory rate 20, O2 sat 98% on room air, blood pressure 150/79. General Appearance: He is alert, appears to be in no acute distress. Head: Normocephalic, atraumatic. ENT: Extraocular movements are intact. No subconjunctival hemorrhage. Moist mucous membranes. Neck: Supple. No lymphadenopathy. Neurological: Alert and oriented x4. Cranial nerves II through XII are grossly intact. Cardiovascular: Regular rate and rhythm. S1, S2 present. There are no murmurs , rubs, or gallops heard. Respiratory: No accessory muscle use. The lungs are clear to auscultation bilaterally. Abdomen: Bowel sounds present. Abdomen is soft, nontender, nondistended. Extremities: No lower extremity edema. Musculoskeletal: No clubbing or cyanosis noted. He exhibits good strength in all extremities. Psychological: Calm and cooperative. Skin: The patient was noted to have incision to the left upper chest, it is well approximated with gianni intact, it is open to air. Distal and lateral to the incision is noted to be a slight yellowish discoloration almost ecchymosis appearing. There is no warmth or drainage noted. DIAGNOSTIC STUDIES/LAB DATA: Sodium 134, potassium 4.0, chloride 102, CO2 of 25 , BUN 24, creatinine 0.95, glucose 116. White blood cell count 9.0, hemoglobin 12.9, hematocrit 38, platelet count 352. ESR 83. These labs are from yesterday on 10/03/19 with a high sensitivity CRP of 41.07, CRP at admission was 2.70. Blood cultures at admission from 09/29/19 with no growth and initial blood cultures drawn yesterday with no growth on day 1. He was noted to have a sputum culture with normal [place]. Please see impression and recommendations outlined above, recommendations have been discussed with Teresa Seay NP and RADHA Pelletier. Case has been reviewed with my attending Dr. Mike Raymond, who agrees with the plan of care. Thank you for asking us to see Mr. Tovar in consultation. Reviewed by LORRI MADDOX 10/07/19 1115 [id number]/[facility] #: [id number] MTDD
--- NOTE | 2019-10-05 02:51 | DS ---
CC: Dr. High; Dr. Kailey Smith; Dr. Mike Raymond.* DISCHARGE SUMMARY: DATE OF ADMISSION: 09/28/19 DATE OF DISCHARGE: 10/31/19 PRIMARY CARE PROVIDER: Dr. High. ATTENDING PHYSICIAN: Dr. Delmis Martin * (dictated by RADHA Pelletier) ENGINEER REMOTE CONTROL DIESEL: Dr. Kailey Smith. INFECTIOUS DISEASE SPECIALIST: Dr. Mike Raymond. PRIMARY DIAGNOSES: 1. Syncopal episode due to sinus pause. 2. Bradycardia with sinus pause status post permanent pacemaker. 3. Erythematous rash lateral to permanent pacemaker surgical site. SECONDARY DIAGNOSES: 1. Hypertension. 2. Hyperlipidemia. 3. Chronic obstructive pulmonary disease/asthma. 4. Essential tremor. 5. Chronic low back pain. 6. Insomnia. STUDIES WHILE IN THE HOSPITAL: 1. CT brain without, impression: No intracranial bleed, suspicious mass, or mass effect. Ventricles appear unremarkable. 2. Transthoracic echocardiogram, summary: LV cavity size normal, wall thickness mildly increased, systolic function normal, estimated EF 65% to 70%. Wall motion overall normal to hyperdynamic, cannot exclude subtle relative hypokinesis of the distal lateral wall. In the apical review there are no definitive regional wall motion abnormalities, RV cavity size mildly dilated. Wall thickness mildly increased, systolic function low normal, mildly dilated LA, mildly dilated RA, trace MR, mildly dilated ascending aorta. 3. Chest x-ray, impression: Chest x-ray findings consistent with atelectasis versus pneumonia involving the right upper lobe. 4. Chest x-ray, impression: Linear density at the right lower lobe is most likely atelectasis. 5. Chest x-ray, impression: Status post pacemaker placement. No evidence for acute findings. 6. Nuc med myocardial stress test, impression: Limited study, reversible photopenia of the distal anterior wall suggestive of ischemia. Assessment: Low risk. 7. Stress test EKG portion: No evidence for ischemia by EKG criteria. 8. Electroencephalogram. Clinical Impression: Normal awake and sleep EEG. CONSULTATIONS WHILE IN THE HOSPITAL: 1. Neurology. The patient presented with seizure-like activity in the setting of symptomatic severe bradycardia and episodic asystole, convulsive syncope in the setting of symptomatic bradycardia and asystole, intermittent confusion and facial asymmetry following an episode of asystole. Overall, the patient's presentation consistent with cerebral hypoperfusion related to symptomatic bradycardia, unclear etiology of bradycardia, possible metoprolol toxicity, although symptoms started prior to taking metoprolol. Differentials include congenital abnormality, channelopathy, ischemic heart disease. The patient most likely needs a pacemaker. I do not suspect if the process is intracranial or a seizure phenomenon. The patient seems to have recovered well. Do not appreciate any lateralizing neurological deficits including facial asymmetry on examination. Do not recommend any further neurological workup. EEG to evaluate for epileptiform discharges. 2. Cardiology consult. Mr. Tovar has had several episodes of decreased responsiveness and syncope. Witnessed significant bradycardia and asystole, etiology unclear. Perhaps developed sick sinus syndrome or toxicity from metoprolol or ischemia. Possibility of need for temporary pacemaker. Try p.r.n. atropine and IV dopamine and hold metoprolol. May require temporary pacer. Bedrest, serial troponin, echocardiogram, evaluate for ischemia. Continue statin, watch for beta-sydnee withdrawals. Strongly advised to discontinue tobacco use. 3. Infectious Disease consult. Recommend continuing Keflex as directed by Cardiology. Keep a close eye on this for any recurrence of erythema or drainage from the incision site. DISCHARGE MEDICATIONS: Home medications: 1. Albuterol HFA inhaler, 2 puff inhalation q.4 hours p.r.n. 2. Alprazolam 0.5 to 1 mg p.o. t.i.d. p.r.n. 3. Atorvastatin 20 mg p.o. daily. 4. Cetirizine 10 mg p.o. daily. 5. Cyclobenzaprine 10 mg p.o. 4 times a day p.r.n. 6. Dulera 200/5 MDI with 2 puff inhalation q.4 hours. 7. Gabapentin 600 mg p.o. 4 times a day. 8. Ibuprofen 800 mg p.o. 4 times a day MDD 3 tabs. 9. Lisinopril 10 mg p.o. daily. 10. Omeprazole 40 mg p.o. b.i.d. 11. Ondansetron 4 mg p.o. q.6 hours p.r.n. 12. Oxycodone 15 mg p.o. q.4 hours p.r.n., MDD 6 tabs. 13. Sertraline 50 mg p.o. daily. 14. Incruse Ellipta 1 puff inhalation daily. New home medications: 1. Cephalexin 500 mg p.o. q.6 hours x4 days. 2. Metoprolol tartrate 25 mg p.o. b.i.d. 3. Nicotine patch 21 mg transdermal q.24 hours. HISTORY OF PRESENT ILLNESS/HOSPITAL COURSE: Mr. Tovar is a 59-year-old male with a past medical history of hypertension, hyperlipidemia, tobacco abuse; who presented to the ER on 09/28/19 with complaints of 2 syncopal episodes with seizure- like activity following. For full and complete details please see the history and physical dictated by Juan Perez, but in short the patient presents with these symptoms as well as associated bradycardia. In the ER, he was noted to have multiple episodes of sinus pause, up to 30 seconds. He was placed on dopamine drip with external pacemaker placed. He was also placed on p.r.n. atropine which was used x1 dose. The patient was eventually weaned off dopamine drip. Permanent pacemaker was inserted and the patient tolerated the procedure well. An echocardiogram revealed an EF of 65% to 70%, wall motion overall normal to hyperdynamic, cannot exclude subtle hypokinesis of distal lateral wall. Nuclear medicine stress testing was obtained and EKG portion was without evidence of ischemia, nuc med portion revealed reversible photopenia distal anterior wall, low risk. With these results Cardiology recommends continued atorvastatin, lisinopril, and metoprolol which has been decreased from his home dose to a dose of 25 mg p.o. b.i.d. The day prior to discharge, the patient was noted to have developed some mild erythema just lateral to the surgical incision site of his pacemaker. This area and surrounding area was tender to palpation as well as warm to touch. The area was demarcated and the patient was placed on cephalexin. The following day the area was noted to be significantly less erythematous but strip tank tender to touch. Infectious Disease was consulted and recommended 5 days of cephalexin. The patient will follow up with Cardiology on Monday, Infectious Disease will also follow up with the patient and the office will call with appointment date and time. The patient was given strict instructions to return to the ER for any concerns for infection including fevers, chills, sweats, drainage from the surgical site, worsening or continued erythema, or any other concerning symptoms. He understands these instructions. The patient was noted to have some seizure-like activity associated with his syncopal episodes. For this Neurology was consulted. Neurology recommended an EEG which was normal. The suspicion is that the patient's symptoms were related to symptomatic bradycardia with asystole leading to convulsive syncope. This was likely the result of cerebral hypoperfusion. They recommend no further studies or followup. At the time of discharge, the patient is eager to be discharged home. He states he is feeling well. He has very mild tenderness at the surgical site and he reports great improvement in the erythema. He denies chest pain, shortness of breath, dizziness, lightheadedness, cough, fever , chills, sweats, abdominal pain, nausea, vomiting, diarrhea, constipation, myalgias, or arthralgias. Mr. Tovar is stable for discharge home. PHYSICAL EXAMINATION: Vital Signs: Temperature 96.4 temporal; heart rate 62, respiratory rate 16, oxygen saturation 95% on room air, blood pressure 112/77. General: Mr. Tovar is a well-developed, well-nourished, slightly obese middle- aged white male who is sitting up in bed. He appears to be in no acute distress. He is pleasant, cooperative, and talkative. Cardiovascular: Regular rate and rhythm with S1, S2 present. No murmurs, rubs, clicks, or gallops. There is no JVD or peripheral edema. There is a newly placed permanent pacemaker with gianni in place. There is no drainage. There is very very mild erythema just lateral to the incision site. Pulmonary: Symmetrical chest expansion without use of accessory muscles. Clear to auscultation bilaterally without rhonchi, wheeze, or rales. No digital clubbing or cyanosis. Abdomen: Obese, bowel sounds in all quadrants, soft and nontender to palpation. Musculoskeletal: Full range of motion without pain or deformity. Neuro: The patient is awake. He is alert and oriented x3. Cranial nerves II through XII are grossly intact. He is able to move all of his extremities. Motor strength is 5/5 bilaterally in the upper and lower extremities. He has a steady gait without impairment. DISCHARGE PLAN: Mr. Tovar will be discharged to home. CONDITION: Good. DIET: Heart healthy. ACTIVITY: 1. As tolerated. 2. Left-arm restrictions as recommended by Cardiology. MEDICATIONS: 1. Nicotine patch daily for continued smoking cessation. 2. Metoprolol, dose changed to 25 mg p.o. b.i.d. 3. Continue Keflex 4 times a day for the next 4 days, you have 1 dose left tonight, then continue x4 days. EDUCATION: 1. Please repeat CRP on Monday10/07/19, prescription given. 2. Follow up with Basim Tovar Cardiology on 10/08/19 at 0800. 3. Follow up with Infectious Disease next week. Office will call with appointment date and time. 4. Follow up with primary care provider in 4 to 7 days. 5. Continue smoking cessation. 6. If you notice increased redness or drainage from the pacemaker site, please call Cardiology at [phone]. There is always a direct support professional coupon redemption clerk. 7. Return to the ER or nearest hospital if you experience any return or worsening of symptoms, chest pain or discomfort, dizziness, lightheadedness, loss of consciousness, high fevers, chills, night sweats, or any other worrisome signs or symptoms. Return for worsening of erythema at pacemaker site , drainage, increased pain, fevers, or any other signs of infections. This is a summarized report of a complex medical history and hospital stay. For further details please see the entire medical record. TIME SPENT: Approximately 35 minutes was spent on this discharge greater than half that time was spent [id number] with the patient discussing discharge plans and instructions. RADHA KAPOOR [id number]/[facility] #: [id number] FARAZ
== END 2019-10-04 16:15 | disposition home or self-care (01) | DRG 171 ==
LOC: ED 16:47 → ICU 19:45 → MEDTELE 10-01 14:00
PROVIDERS: ADMIT Hospitalist; ATTEND Internal Medicine
PROC: 5A09357 Assistance with Respiratory Ventilation, Less than 24 Consecutive Hours, Continuous Positive Airway Pressure (ICD-10-PCS; 2019-09-28)
PROC: 02H63JZ Insertion of Pacemaker Lead into Right Atrium, Percutaneous Approach (ICD-10-PCS; 2019-10-01)
PROC: 02HK3JZ Insertion of Pacemaker Lead into Right Ventricle, Percutaneous Approach (ICD-10-PCS; 2019-10-01)
PROC: 4A00X4Z Measurement of Central Nervous Electrical Activity, External Approach (ICD-10-PCS; 2019-10-01)
PROC: 0JH606Z Insertion of Pacemaker, Dual Chamber into Chest Subcutaneous Tissue and Fascia, Open Approach (ICD-10-PCS; principal; 2019-10-01 14:00)
DX: I49.5 Sick sinus syndrome (principal); I46.9 Cardiac arrest, cause unspecified; I10 Essential (primary) hypertension; G25.0 Essential tremor; J44.9 Chronic obstructive pulmonary disease, unspecified; E78.5 Hyperlipidemia, unspecified; F41.9 Anxiety disorder, unspecified; M54.5 Low back pain; F17.210 Nicotine dependence, cigarettes, uncomplicated; I25.10 Atherosclerotic heart disease of native coronary artery without angina pectoris; K21.9 Gastro-esophageal reflux disease without esophagitis; M19.90 Unspecified osteoarthritis, unspecified site; F32.9 Major depressive disorder, single episode, unspecified; E66.9 Obesity, unspecified; G89.4 Chronic pain syndrome; G47.33 Obstructive sleep apnea (adult) (pediatric); R00.1 Bradycardia, unspecified; G40.909 Epilepsy, unspecified, not intractable, without status epilepticus; R09.02 Hypoxemia; L53.9 Erythematous condition, unspecified; R21 Rash and other nonspecific skin eruption; Z79.899 Other long term (current) drug therapy; Z23 Encounter for immunization; Z68.30 Body mass index [BMI] 30.0-30.9, adult
CPT/HCPCS: 36415; 36600; 70450; 71045; 71046; 78452; 80048; 80053; 80061; 80307; 80320; 81003; 82803; 83036; 83605; 83735; 83880; 84439; 84443; 84484; 85025; 85610; 85652; 86140; 86141; 86618; 87040; 87070; 87205; 87641; 87899; 90686; 90732; 93005; 93017; 93306; 94640; 94660; 95819; 96361; 96374; 99285; 99406; A9270-GY; A9502; G0480; J0690; J1265; J1650; J2250; J2405; J2785; J3010; J3490; J3535

== ENCOUNTER 2021-02-06 20:46 | Observation (INO) ==
[2021-02-06] MEDS ORDERED: NS 0.9% 1000 ml BAG 1,000 ML IV ONE (21:16)
[2021-02-06 22:16] LABS: ABS Lymphocytes 0.9 10^3/ul (1.0-4.8); ABS Monocytes 1.5 10^3/ul (0-0.8); ABS Neutrophils 19.8 10^3/ul (1.5-7.7); Eosinophil % 0.1 %; Hematocrit 43 % (42-52); Lymphocyte % 3.8 %; Mean Corpuscular HGB Conc 35 g/dL (31-36); Mean Corpuscular Hemoglobin 32 pg (27-31); Mean Corpuscular Volume 91 fL (80-94); Mean Platelet Volume 6.5 fL (7.4-10.4); Platelet Count 508 10^3/uL (150-450); Red Blood Count 4.67 10^6 /uL (4.18-5.48); Red Cell Distribution Width 14 % (10-15); White Blood Count 22.2 10^3/uL (3.5-10.8)
[2021-02-06 22:30] LABS: INR 1.05 (0.82-1.09)
[2021-02-06 22:33] LABS: Alcohol, S < 10 mg/dL (<10)
[2021-02-06 22:35] LABS: ALT 16 U/L (7-52); AST 25 U/L (13-39); Albumin 4.5 g/dL (3.2-5.2); Albumin/Globulin Ratio 1.4 (1-3); Alkaline Phosphatase 86 U/L (34-104); Anion Gap 12 mmol/L (2-11); Blood Urea Nitrogen 30 mg/dL (6-24); C Reactive Protein 21.99 mg/L (<8.01); CO2 Carbon Dioxide 23 mmol/L (22-32); Chloride 98 mmol/L (101-111); EGFR African American 63.8 (>60); EGFR Non-African American 52.7 (>60); Globulin 3.3 g/dL (2-4); Glucose 107 mg/dL (70-100); Magnesium 2.2 mg/dL (1.9-2.7); Potassium 3.7 mmol/L (3.5-5.0); Sodium 133 mmol/L (135-145); Total Protein 7.8 g/dL (6.4-8.9)
[2021-02-06 22:37] LABS: Troponin I 0.03 ng/mL (<0.03)
[2021-02-06 22:49] LABS: TSH Ultra Thyroid Stim Horm 0.34 mcIU/mL (0.34-5.60)
[2021-02-06 23:31] LABS: Creatine Kinase 329 U/L (10-223)
[2021-02-07] MEDS ORDERED: NS 0.9% 1000 ml BAG 1,000 ML IV ONE (00:17)
[2021-02-07] MEDS ORDERED: LORazepam 2 mg VIAL 1 ml IV PUSH ONE (00:25)
[2021-02-07] MEDS ORDERED: Lorazepam PYXIS KEY PRN ×2 (00:25→02:15)
[2021-02-07 01:25] LABS: Troponin I 0.03 ng/mL (<0.03)
[2021-02-07] MEDS ORDERED: Al Hydrox/Mg Hydrox/Simet LIQ 30 ML UDC PO PRN (02:09)
[2021-02-07] MEDS ORDERED: Magnesium Hydroxide LIQ 30 ML UDC PO PRN (02:09)
[2021-02-07] MEDS ORDERED: Ondansetron 4 mg VIAL 2 MG/ML 2 ml VIAL IV PRN (02:09)
[2021-02-07] MEDS ORDERED: LORazepam 2 mg VIAL 1 ml IV PUSH PRN ×2 (02:15→20:19)
[2021-02-07] MEDS ORDERED: hydrALAZINE 20 mg/ml 1 ML Vial IV IV SLOW PU PRN (02:24)
[2021-02-07] MEDS ORDERED: Albuterol HFA INHALER 8 gm MDI INH PRN (03:02)
[2021-02-07 04:18] LABS: Urine Appearance Cloudy; Urine Bilirubin Negative (Negative); Urine Blood 1+ (Negative); Urine Color Yellow; Urine Glucose Negative (Negative); Urine Ketones 1+ (Negative); Urine Nitrite Negative (Negative); Urine Protein 1+(30 mg/dL) (Negative); Urine Specific Gravity 1.016 (1.002-1.030); Urine Urobilinogen Negative (Negative)
[2021-02-07 04:23] LABS: Urine Bacteria Absent (Absent); Urine Red Blood Cell Trace(0-2/hpf) (Absent); Urine Squamous Epithelial Cell Present (Absent); Urine Uric Acid Crystals Present (Absent); Urine White Blood Cell Trace(0-5/hpf) (Absent)
[2021-02-07 04:36] LABS: Urine Benzodiazepine Screen Presumptive Positive (None Detect); Urine Cannabinoids Screen Presumptive Positive (None Detect); Urine Opiates Screen None Detected (None Detect)
[2021-02-07] MEDS: NS 0.9% 1000 ml BAG 1,000 ML IV SCH ×2 (05:29→22:12)
[2021-02-07] MEDS: Heparin 5000 UNITS/ML 1 mL VIAL SUBCUT SCH ×3 (05:52→22:34)
[2021-02-07 05:55] LABS: ABS Eosinophils 0.1 10^3/ul (0-0.6); ABS Lymphocytes 2.1 10^3/ul (1.0-4.8); ABS Monocytes 1.5 10^3/ul (0-0.8); ABS Neutrophils 11.3 10^3/ul (1.5-7.7); Eosinophil % 0.5 %; Hematocrit 39 % (42-52); Hemoglobin 12.9 g/dL (14.0-18.0); Lymphocyte % 14.2 %; Mean Corpuscular HGB Conc 33 g/dL (31-36); Mean Corpuscular Hemoglobin 30 pg (27-31); Mean Corpuscular Volume 92 fL (80-94); Mean Platelet Volume 6.5 fL (7.4-10.4); Platelet Count 484 10^3/uL (150-450); Red Blood Count 4.24 10^6 /uL (4.18-5.48); Red Cell Distribution Width 15 % (10-15)
[2021-02-07 06:16] LABS: ALT 13 U/L (7-52); AST 21 U/L (13-39); Albumin 3.8 g/dL (3.2-5.2); Albumin/Globulin Ratio 1.4 (1-3); Alkaline Phosphatase 70 U/L (34-104); Anion Gap 9 mmol/L (2-11); Blood Urea Nitrogen 27 mg/dL (6-24); CO2 Carbon Dioxide 22 mmol/L (22-32); Calcium 8.8 mg/dL (8.6-10.3); Chloride 104 mmol/L (101-111); Creatine Kinase 300 U/L (10-223); EGFR African American 71.5 (>60); EGFR Non-African American 59.1 (>60); Globulin 2.7 g/dL (2-4); Glucose 112 mg/dL (70-100); Potassium 3.8 mmol/L (3.5-5.0); Sodium 135 mmol/L (135-145); Total Protein 6.5 g/dL (6.4-8.9)
[2021-02-07 06:27] LABS: Troponin I 0.03 ng/mL (<0.03)
[2021-02-07] MEDS: SPIRIVA Respimat (tiotropium) 2.5 mcg/inh Inhaler INH SCH (07:58)
[2021-02-08 05:56] LABS: ABS Eosinophils 0.1 10^3/ul (0-0.6); ABS Lymphocytes 3.2 10^3/ul (1.0-4.8); ABS Neutrophils 3.8 10^3/ul (1.5-7.7); Eosinophil % 0.9 %; Hematocrit 36 % (42-52); Lymphocyte % 39.5 %; Mean Corpuscular HGB Conc 34 g/dL (31-36); Mean Corpuscular Hemoglobin 32 pg (27-31); Mean Corpuscular Volume 94 fL (80-94); Mean Platelet Volume 6.7 fL (7.4-10.4); Platelet Count 451 10^3/uL (150-450); Red Blood Count 3.81 10^6 /uL (4.18-5.48); Red Cell Distribution Width 14 % (10-15); White Blood Count 8.1 10^3/uL (3.5-10.8)
[2021-02-08] MEDS: Heparin 5000 UNITS/ML 1 mL VIAL SUBCUT SCH ×2 (06:11→13:12)
[2021-02-08 06:18] LABS: Calcium 8.6 mg/dL (8.6-10.3); EGFR African American 81.2 (>60); EGFR Non-African American 67.1 (>60); Potassium 3.4 mmol/L (3.5-5.0)
[2021-02-08] MEDS: SPIRIVA Respimat (tiotropium) 2.5 mcg/inh Inhaler INH SCH (08:34)
[2021-02-08] MEDS ORDERED: KCL 20 MEQ/100 ML IVPREMIX 20 MEQ/100 ML BAG IV ONE (09:27)
[2021-02-08] MEDS ORDERED: Potassium Chlor 20 meq TAB.ER PO ONE (09:27)
[2021-02-08 10:32] LABS: Magnesium 1.9 mg/dL (1.9-2.7)
[2021-02-08 15:11] VITALS: BP 156/98
[2021-02-09 12:18] LABS: Urine Alcohol Negative mg/dL (Cutoff: 10); Urine Barbiturates Negative; Urine Benzodiazepines Presumptive Positive ng/mL; Urine Cocaine Presumptive Positive ng/mL; Urine Methadone Negative (Negative); Urine Opiates Negative (Negative); Urine Phencyclidine Negative ng/mL (Cutoff: 25); Urine Tetrahydrocannabinol Presumptive Positive ng/mL (Cutoff: 50)
[2021-02-10 20:23] LABS: Urine THC Interpretation Positive.
[2021-02-11 16:49] LABS: 7-amnioflunitrazepam LC-MS/MS Negative ng/mL (Cutoff: 10); Alpha OH Triazolam by LC-MS/MS Negative ng/mL (Cutoff: 10); Alpha-Hydroxyalprazolam LC-MS Negative ng/mL (Cutoff: 10); Alpha-OH Midazolam LC-MS/MS 3640 ng/mL (Cutoff: 10); Alprazolam LC-MS/MS Negative ng/mL (Cutoff: 10); Benzodiazepines Interpretation Positive.; Chlordiazepoxide by LC-MS/MS Negative ng/mL (Cutoff: 10); Clobazam LC-MS/MS Negative ng/mL (Cutoff: 10); Lorazepam by LC-MS/MS 58 ng/mL (Cutoff: 10); Oxazepam by LC-MS/MS Negative ng/mL (Cutoff: 10); Prazepam by LC-MS/MS Negative ng/mL (Cutoff: 10); Temazepam by LC-MS/MS Negative ng/mL (Cutoff: 10); Triazolam by LC-MS/MS Negative ng/mL (Cutoff: 10); Zolpidem Phenyl-4-Carboxylic Negative ng/mL (Cutoff: 10); Zolpidem by LC-MS/MS Negative ng/mL (Cutoff: 10)
[2021-02-13 02:16] LABS: Ur Benzoylecgonine Confirm 43240 ng/mL (Cutoff: 50); Urine Cocaine Confirm (GC/MS) 163 ng/mL (Cutoff: 50); Urine Cocaine Interpretation Positive.
== END 2021-02-08 17:00 | disposition home or self-care (01) ==
LOC: MEDTELE 20:46 → ED 20:46 → MEDTELE 02-07 05:43
PROVIDERS: ADMIT Hospitalist; ATTEND Internal Medicine